=== PATIENT | male | born 1955 | race Caucasian/White ===

== ENCOUNTER → 2023-05-16 07:00 | Outpatient (BNV) | payer OTHER, SELFPAY | PROVIDERS: Admitting Provider Physician Assistant; Emergency Provider Emergency Medicine; PCP Pediatrics; Visit Provider Internal Medicine | DX: I63.9 Cerebral infarction, unspecified (principal) | CPT/HCPCS: 93010; 93306 ==

== ENCOUNTER 2023-05-16 10:04 | Inpatient (IN) | payer MEDICARE, OTHER, SELFPAY ==
--- NOTE | ~2023-05-16 | MR_ITS ---
MRI OF THE BRAIN WITHOUT IV CONTRAST INDICATION: Acute CVA. COMPARISON: Head CT and CTA head and neck performed earlier the same day. TECHNIQUE: Multiplanar multisequence MR imaging of the brain was obtained without IV contrast. FINDINGS: There is no hydrocephalus, extra-axial surface collection, or herniation. There is a small 0.7 cm acute infarct within the posterior right lopes radiata. There is no mass effect and there is no hemorrhagic transformation. The major flow voids at the skull base are preserved. There is no intracranial hemorrhage on the gradient recalled echo acquisition. The midline structures are normal. The cerebellar tonsils are normally positioned. The cerebellum and brainstem are normal. The craniocervical junction is normal. Osseous marrow signal intensity is homogenous. The visualized soft tissues are unremarkable. MR/MR head/brain wo con IMPRESSION: - There is a small 0.7 cm acute infarct within the posterior right lopes radiata. There is no mass effect and there is no hemorrhagic transformation. - No FLAIR imaging is available for interpretation at the time of this study. There is chronic microangiopathy.
--- NOTE | ~2023-05-16 | CT_ITS ---
EXAMINATION: CT ANGIOGRAM HEAD CT ANGIOGRAM NECK CLINICAL INFORMATION: Left-sided weakness. COMPARISON: CT head from 05/16/2023. TECHNIQUE: Initial noncontrast phone engineer imaging of the head and neck was performed. Comparison is made with noncontrast head CT from earlier today. Test bolus sequences followed by intravenous administration 70 mL of Omnipaque 350. Helical imaging was performed in the axial plane from the aortic arch to the skull vertex. Delayed postcontrast imaging of the head was also performed. The data was processed at the manufacturing engineering technologist's workstation for generation of MIP sequences. Angled MIPs and volume rendered reformatted images were also generated at an offline 3D workstation. Stenoses are assessed in accordance with NASCET criteria unless otherwise indicated. This CT examination was performed using dose optimization techniques as appropriate, variously including the following: *Automated exposure control. *Adjustment of mA and/or kV according to patient size (this includes techniques or standardized protocols for targeted exams where dose is matched to indication/reason for exam; i.e. extremities or head). *Use of iterative reconstruction technique. DLP: 1604 mGy-cm FINDINGS: CT Head: There is no evidence of acute intracranial hemorrhage or edematous territorial infarction. Uriarte-white matter differentiation is preserved. A few foci of hypoattenuation in the periventricular and deep white matter are consistent with mild microangiopathy. The ventricles are normal in morphology and size. No evidence for obstructive hydrocephalus. No abnormal mass effect or midline shift. No extra-axial fluid collections. No pathologic intra-axial enhancement or regional oligemia. No acute soft tissue or osseous abnormalities. Mild mucosal thickening of the paranasal sinuses. Mild leftward nasal septal deviation anteriorly. Moderate rightward nasal septal deviation posteriorly with spurring. The mastoid air cells and middle ear cavities are clear. Multifocal odontogenic enamel erosions. 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 The remaining cervical soft tissues are within normal limits. Straightening of the normal cervical lordosis. Moderate degenerative disc disease from C4-C7 with disc-osteophyte complex formation. There appears to be at least mild spinal canal stenoses from C4-C7. Facet and uncovertebral joint arthropathy leads to osseous encroachment on the neural foramina from C4-C7. CT Upper Chest: The visualized lung apices and upper mediastinum are within normal limits. Neck CTA: Aortic Arch: Normal contour and caliber with mild calcific atherosclerotic disease. Classic 3 vessel branching pattern of the aortic arch. Great Vessel Origins: No significant stenosis of the branch origins. Right Common Carotid Artery: No focal stenosis or occlusion. Cervical Right Internal Carotid Artery: Mild calcific atherosclerotic disease of the carotid bulb and proximal internal carotid artery without flow-limiting stenosis. Left Common Carotid Artery: No focal stenosis or occlusion. Cervical Left Internal Carotid Artery: Mild calcific atherosclerotic disease of the carotid bulb and proximal internal carotid artery without flow-limiting stenosis. Cervical Right Vertebral Artery: Co-dominant. Calcific atherosclerotic disease causes mild to moderate stenosis of the origin. No additional focal stenosis or occlusion. Cervical Left Vertebral Artery: Co-dominant. No focal stenosis or occlusion. Brain CTA: Intracranial Internal Carotid Arteries: Calcific atherosclerotic disease of the intracranial internal carotid arteries without occlusion or flow-limiting stenosis. Right Anterior Cerebral Artery: Normal A1 segment. Normal opacification of the distal ERMELINDA segments. Left Anterior Cerebral Artery: Normal A1 segment. Normal opacification of the distal ERMELINDA segments. Anterior Communicating Artery: Normal. Right Middle Cerebral Artery: Normal M1 segment of the MCA without focal stenosis or occlusion. Normal arborization of the distal segments. Left Middle Cerebral Artery: Normal M1 segment of the MCA without focal stenosis or occlusion. Normal arborization of the distal segments. Right Vertebral Artery: Normal V4 segment. Normal opacification of the proximal segments of the posterior inferior cerebellar artery. Left Vertebral Artery: Normal V4 segment. Normal opacification of the proximal segments of the posterior inferior cerebellar artery. Basilar Artery: Normal without focal stenosis or occlusion. Normal appearance of the proximal superior cerebellar arteries. Right Posterior Cerebral Artery: Normal P1 segment. Normal opacification of the distal BUSINESS SYSTEMS MANAGER segments. Left Posterior Cerebral Artery: Normal P1 segment. Normal opacification of the distal BUSINESS SYSTEMS MANAGER segments. Normal opacification of the superior sagittal, straight, transverse, and sigmoid sinuses. CT/CT angio head neck stroke IMPRESSION: 1. No evidence of acute intracranial hemorrhage or edematous territorial infarction. Mild underlying microangiopathy. 2. CTA of the head and neck without proximal occlusion. 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 No additional flow-limiting stenoses. 3. Moderate multilevel degenerative spondyloarthropathy of the cervical spine. This critical result was discussed with Dr. Jauregui at 10:54 on 05/16/2023 and it was ascertained that the content and urgency of the report was understood at the time of direct communication.
--- NOTE | ~2023-05-16 | CT_ITS ---
EXAMINATION: CT HEAD WITHOUT CONTRAST CLINICAL INFORMATION: Left-sided weakness COMPARISON: None available. TECHNIQUE: Contiguous axial imaging was performed from the skull base to vertex without intravenous administration of contrast. This CT examination was performed using dose optimization techniques as appropriate, variously including the following: *Automated exposure control *Adjustment of mA and/or kV according to patient size (this includes techniques or standardized protocols for targeted exams where dose is matched to indication/reason for exam; i.e. extremities or head) *Use of iterative reconstruction technique DLP: 719 mGy-cm FINDINGS: There is no evidence of acute intracranial hemorrhage or territorial infarction. No abnormal mass effect or midline shift is seen. Uriarte to white matter differentiation is well preserved. No extra-axial fluid collections are identified. The ventricles are normal in size. There is no abnormal attenuation within the brain parenchyma. The osseous structures and soft tissues are normal. The mastoid air cells and visualized portions of the paranasal sinuses are well aerated. Atherosclerotic calcifications. CT/CT head/brain wo IV con IMPRESSION: No acute intracranial pathology. This critical result was discussed with Lucina Jauregui by telephone on 05/16/2023 10:45 AM and it was ascertained that the content and urgency of the report was understood at the time of direct communication.
--- NOTE | 2023-05-16 07:00 | CA_ITS ---
Transthoracic Echocardiogram Patient (Last, First, Middle): Arsh Stokes, Gender: Male Date of : 1955 Age: 67 Procedure Date: 05/16/2023 Procedure Type: Transthoracic Echocardiogram Location: ER Height: 175.26 cm Weight: 87.09 kg BSA: 2.03 m2 Heart Rate: bpm BP: 148 / 83 mmHg Certified Surgical Assistant: MIGUEL Referring MD: Madelaine RANDALL Symptoms: acute cva Study Quality: Adequate ECG Rhythm: Sinus Conclusions: - The left ventricular systolic function is normal. The calculated ejection fraction is 64% by biplane method. - There is mildly increased left ventricular wall thickness. - No obvious valvular pathology seen on this study. - There is mild dilatation of the ascending aorta measuring 3.80 cm. Findings Left Ventricle Normal left ventricular cavity size. There is mildly increased left ventricular wall thickness. The left ventricular systolic function is normal. The calculated ejection fraction is 64% by biplane method. There is no evidence of regional wall motion abnormalities. Diastolic function is normal for age. Right Ventricle Normal right ventricular cavity size and systolic function. Atria Both atria are normal in size. Interatrial shunt cannot be excluded. Aortic Valve There is a normal trileaflet aortic valve. There is no aortic valve stenosis. There is no aortic valve regurgitation. Mitral Valve The mitral valve appears normal. There is no mitral valve regurgitation. There is no mitral valve stenosis. Pulmonic Valve The pulmonic valve is likely normal. Tricuspid Valve Normal tricuspid valve structure. There is trace tricuspid valve regurgitation. There is no evidence of pulmonary hypertension. Great Vessels There is mild dilatation of the ascending aorta measuring 3.80 cm. Venous The inferior vena cava is normal in size and collapses greater than 50% with inspiration. Pericardium/Pleural There is no evidence of pericardial effusion. Prior Study Comparison No prior study available for comparison. If clinically indicated, consider agitated saline contrast - bubble study. Recommendations, Care & Conclusions No obvious valvular pathology seen on this study. Measurements 2D Linear Measurements IVSd: 1.27 0.6-0.9/0.6-1.0 cm LVIDd: 4.09 3.9-5.3/4.2-5.9 cm LVIDd Index: 2.01 2.4-3.2/2.2-3.1 cm/m2 LVIDs: 2.42 2.0-3.6 cm LVPWd: 1.09 0.7-1.1 cm Ao Root: 3.30 2.1-3.5 cm LA Diam: 3.00 2.7-3.8/3.0-4.0 cm LAIDs Index: 1.48 1.5-2.3 cm/m2 LV Mass: 207.91 67-162/88-224 g LV Mass Index: 102.42 43-95/49-115 g/m2 LVOT Diam: 2.00 3.0+(-)1.3 cm 2D Systolic Function EF 4C: 69.10 >55% EF 2C: 57.00 >55% EF BiP: 64.40 >55% Mitral Valve MV Pk E: 0.84 MV PK A: 0.92 MV Decel Time: 169.00 E/A: 0.90 E'Lateral: 9.14 E'Medial: 8.81 E/E' Med: 9.50 E/E' Lat: 9.20 PHT: 50.00 MVA PHT: 4.40 Decel [place]: 4.96 Aortic Valve AoV Pk Chilo: 1.32 AoV Mn Chilo: 0.91 AoV VTI: 0.24 AoV Pk Grad: 7.00 Aov Mn Grad: 4.00 JACOBO Cont.VTI: 2.50 LVOT LVOT Pk Chilo: 0.98 LVOT Mn Chilo: 0.76 LVOT VTI: 0.19 LVOT Pk Grad: 4.00 LVOT Mn Grad: 3.00 LVOT Diam: 2.00 LVOT Area: 3.14 Diastolic Function MV Pk E: 0.84 MV Pk A: 0.92 E/A: 0.90 E'Medial: 8.81 E/E' Med: 9.50 E' Laterial: 9.14 E/E' Lat: 9.20 Right Ventricle TAPSE (mm): 22.00 TVS' Chilo: 13.00 Tricuspid Valve TR Pk Chilo: 1.71 TR Pk Grad: 12.00 RA Press: 3.00 RVSP: 15.00 Great Vessels Aorta Ao Root-2D: 3.30 2.0-3.7 cm Ao Asc: 3.80 2.1-3.4 cm Pulmonary Valve PV Pk Chilo: 0.94 Peak PV Grad: 4.00 Updated in Other Vendor System with Status of Final Jerry Castro MD electronically signed on 05/16/2023 4:27:15 PM with status of Final
--- NOTE | 2023-05-16 10:13 | ECG_ITS ---
Test Reason : STROKE SYMPTOMS Blood Pressure : / mmHG Vent. Rate : 093 BPM Atrial Rate : 093 BPM P-R Int : 186 ms QRS Dur : 092 ms QT Int : 344 ms P-R-T Axes : 064 -50 037 degrees QTc Int : 427 ms Normal sinus rhythm Left axis deviation Abnormal ECG No previous ECGs available Referred By: Lucina Jauregui Electronically Signed By:SIM GARG
[2023-05-16 10:16] VITALS: BP 162/82; BP 164/78; PULSE 101; PULSE 104; RESP 18; TEMP 36.7; O2SAT 96; BMI 28.4
--- NOTE | 2023-05-16 10:21 | ED_ITS ---
HPI - Neuro Symptoms/Deficit General Chief Complaint: Stroke Stated Complaint: L LEG WEAKNESS Time Seen by Provider: 05/16/23 10:08 Source: patient Mode of arrival: EMS Limitations: no limitations History of Present Illness HPI Narrative: 67 yo male with PMH of DM, HTN went to bed at 830pm and was okay. He woke up at 3am to use the bathroom and noted his left leg was weak and he had to hobble. He ignored the symptoms and went to work. He denies headaches, trauma, neck manipulation. He is R handed. His co-workers forced him to come when they noted he was dragging his leg and hobbing around. He has never had a stroke before. 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 Onset (ago): hour(s) (830pm yesterday ) Last Observed Normal: 20:30 Timing confirmed by: other (self) Location: left arm and left leg History of same: No Quality: weak Relieving factors: none Exacerbating factors: none Context: gradual onset On Anticoagulants: No Associated symptoms: denies other symptoms Treatments Prior to Arrival: Aspirin (650mg) Related Data Allergies Allergy/AdvReac Type Severity Reaction Status Date / Time No Known Allergies Allergy Verified 05/16/23 10:08 Review of Systems 2 Review of Systems: Constitutional : No Fever, No Chills, No Fatigue ENT/Mouth : No sore throat, No Rhinorrhea Eyes: No Eye Pain, No Swelling, No Redness Cardiovascular : No Chest Pain, No SOB, No Dyspnea on Exertion Respiratory : No Cough, No Sputum Gastrointestinal : No Nausea, No Vomiting, No Diarrhea, No abdominal Pain Genitourinary : No Dysuria, No Urinary Frequency, No Hematuria, Musculoskeletal : No joint pain, No Myalgias, No Joint Swelling Skin : No Skin Lesions, No rash Neuro : pos Weakness, No Numbness, No Dizziness, no Headache Psych : No Anxiety/Panic, No Depression All other systems reviewed and are negative [facility] Past Medical History Attestation statement: The following information was validated with the patient. Medical History HTN (hypertension) Diabetes Social History Social History (Updated 05/16/23 @ 10:33 by Lucina Jauregui DO) Patient Tobacco Use Status: Never used Tobacco Smoked in Last 30 Days: No Use of substances other than those prescribed or required for medical reasons: No Advance Directives: No Advance Directives Information Provided: No Physical Exam 2 Vital Signs: Vital Signs: Last Vital Signs Temp 98.1 F 05/16/23 10:16 Pulse 101 H 05/16/23 10:16 Resp 18 05/16/23 10:16 BP 162/82 H 05/16/23 10:16 Pulse Ox 96 05/16/23 10:16 O2 Del Method Room Air 05/16/23 10:16 BMI result Body Mass Index 28.4 Appearance: Alert. Oriented X3. No acute distress. Eyes: Pupils equal, round and reactive to light. ENT: Pharynx normal. Neck: Normal inspection. Neck supple. CVS: Normal heart rate and rhythm. Pulses normal. Respiratory: No respiratory distress. Breath sounds normal. Abdomen: Soft and nontender. Skin: Skin warm and dry. Normal skin color. Normal skin turgor. Extremities: No lower extremity edema. No calf ttp Neuro: Oriented X 3. L sided weakness L > arm no vision change and no facial droop normal speech. No sensory deficit. Medications Administered Discontinued Medications Generic Name Dose Route Start Last Admin Trade Name Freq PRN Reason Stop Dose Admin Iohexol 100 ml 05/16/23 10:35 05/16/23 10:36 Iohexol 350 Mg/Ml 100 Ml Infus..Btl IV 05/16/23 10:36 70 ml ONCE ONE Administration Medical Decision Making Medical Decision Making 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 suspect stroke denies neck injury or manipulation. 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 Lab Attestation statement: I reviewed the patient's lab results. 05/16/23 10:56 05/16/23 10:56 Labs: Lab Results 05/16/23 Range/Units 10:56 WBC 6.1 (4.8-10.8) X10*3/uL RBC 4.64 (4.60-5.80) X10*6/uL Hgb 14.5 (14.0-18.0) g/dl Hct 41.4 L (42.0-52.0) % MCV 89.2 (80.0-98.0) fL MCH 31.3 (27.0-33.0) pg MCHC 35.0 (31.0-36.0) g/dl RDW 12.2 (11.0-16.0) % Plt Count 183 (160-400) X10*3/uL MPV 8.2 L (9.4-12.4) fL Immature Gran % (Auto) 0.2 (0.0-0.4) % Neut % (Auto) 83.3 H (45-73) % Lymph % (Auto) 10.4 L (20-40) % [place] % (Auto) 5.1 (2-11) % Eos % (Auto) 0.5 (0-4) % Baso % (Auto) 0.5 (0-2) % Lymph # (Auto) 0.6 L (1.2-4.9) X10*3/uL [place] # (Auto) 0.3 (0.1-1.2) X10*3/uL Eos # (Auto) 0.0 (0.0-0.4) X10*3/uL Baso # (Auto) 0.0 (0.0-0.2) X10*3/uL Abs Immat Gran (auto) 0.01 (0.00-0.03) X10*3/uL Absolute Neuts (auto) 5.1 (2.0-8.3) x10*3/uL Absolute Nucleated RBC 0.000 (0.0-0.012) X10*3/uL Nucleated RBC % (auto) 0.0 (0.0-0.2) /100WBC PT 10.8 L (11.1-13.3) SEC INR 0.9 (0.9-1.1) Sodium 137 (135-145) mmol/L Potassium 4.3 (3.3-5.1) mmol/L Chloride 106 (96-108) mmol/L Carbon Dioxide 24 (22-29) mmol/L Anion Gap 11 L (12-20) BUN 17 H (9-16) mg/dL Creatinine 1.03 (0.5-1.4) mg/dL Estim Creat Clear Calc 77.1 Estimated GFR > 60 Random Glucose 140 H (60-115) mg/dL Estimat Average Glucose 169 mg/dL Hemoglobin A1c % 7.5 H (<6.0) % Calcium 8.6 (8.4-10.2) mg/dL Magnesium 1.7 (1.6-2.6) mg/dL Total Bilirubin 0.3 (0.0-1.0) mg/dL Direct Bilirubin 0.1 (0.0-0.5) mg/dL AST 15 (5-37) U/L ALT 24 (0-40) U/L Alkaline Phosphatase 64 (39-117) U/L Troponin I High Sens < 2.7 (<3.5-35.0) ng/L Total Protein 6.3 L (6.5-8.0) g/dL Albumin 4.0 (3.5-5.0) g/dL Triglycerides 92 (<150) mg/dL Cholesterol 174 (<200) mg/dL LDL Cholesterol, Calc 110 H (<100) mg/dL HDL Cholesterol 46 (>40) mg/dL Ethyl Alcohol < 10 mg/dL Independent Interpretation I performed an independent interpretation of an: EKG and CT Scan (no ICH) Interpretation: Rate: 93 Rhythm: NSR [place]: left Normal P waves. Normal SHAWNA. Normal QRS complex. ST T wave : normal no RONIT qTC: 427 prior studies: no acute ischemia The study has been interpreted contemporaneously by me. . Radiology Impression Discussion of test interpretation with radiology: I discussed test interpretation with the radiologist and I have reviewed the radiologist's reading. Radiologist Impression: 1048am negative non con CT scan no ICH 1053am CTA no LVO at this time Independent Historian Clinical information obtained from an independent historian. History obtained from or confirmed by: EMS NIH Stroke Scale Internal: Initial- Upon Arrival Level of Consciousness: Alert Level of Consciousness Questions: Answers both questions correctly Level of Consciousness Commands: Performs both tasks correctly Best Gaze: Normal Visual: No visual loss Facial Palsy: Normal Motor Arm (Right): No drift Motor Arm (Left): Drift Motor Leg (Right): No drift Motor Leg (Left): Drift Limb Ataxia: Absent Sensory: Normal Best Language: No aphasia Dysarthia: Normal Extinction and Inattention: No abnormality Score: 2 Critical Care Time Critical Care Time Critical Care Time: Yes Total Critical Care Time: 45 Attestation: stroke protocol, admission, repeat exams Discharge Plan Discharge Clinical Impression: Left-sided weakness Patient Disposition: Admitted As Inpatient
[2023-05-16] MEDS: iohexoL 350 MG/ML 100 ML INFUS..BTL IV (10:36)
[2023-05-16 11:03] LABS: MANUAL DIFF FLAG NO
[2023-05-16 11:08] LABS: Basophils Percent Auto 0.5 % (0-2); Eosinophils Percent Auto 0.5 % (0-4); Hematocrit 41.4 % (42.0-52.0); Hemoglobin 14.5 g/dl (14.0-18.0); Imm Gran Abs Auto 0.01 X10*3/uL (0.00-0.03); Imm Gran Pct Auto 0.2 % (0.0-0.4); Lymphocytes Absolute Auto 0.6 X10*3/uL (1.2-4.9); Lymphocytes Percent Auto 10.4 % (20-40); Mean Corpuscular Hemoglobin 31.3 pg (27.0-33.0); Mean Corpuscular Volume 89.2 fL (80.0-98.0); Mean Platelet Volume 8.2 fL (9.4-12.4); Monocytes Absolute Auto 0.3 X10*3/uL (0.1-1.2); Monocytes Percent Auto 5.1 % (2-11); Neutrophils Absolute Auto 5.1 x10*3/uL (2.0-8.3); Neutrophils Percent Auto 83.3 % (45-73); Platelet Count 183 X10*3/uL (160-400); Red Blood Count 4.64 X10*6/uL (4.60-5.80); Red Cell Distribution Width 12.2 % (11.0-16.0); White Blood Count 6.1 X10*3/uL (4.8-10.8)
[2023-05-16 11:09] LABS: INTERNATIONAL NORM RATIO 0.9 (0.9-1.1); Prothrombin Time 10.8 SEC (11.1-13.3)
--- NOTE | 2023-05-16 11:12 | MHC.STROKE ---
Notified of stroke alert patient in the ED. Upon arrival to ED, patient was in CT scan. Once CT finished, patient brought to room 5. Pt presented to ED after coworkers convinced him to come to the ED. Pt reports going to bed at 2030 yesterday. He reports that he felt well. States that he woke up around 3am (goes into work for 5) and states that he felt like his left foot was asleep. He reports that his left leg was dragging a little. This was new for him as he previously had no mobility issues. Pt denies speech/visual disturbance. Denies confusion at any point. Pt is laying on ED stretcher. Pt is awake, alert and oriented x 3. Skin pink warm and dry. Resp even, easy, unlabored. Denies N/V. No complaints of pain. Hand grasp appears weaker on the left (despite patient trying to overcompensate with that hand). Slight drift noted to left arm. Speech is clear, tongue midline. No facial droop appreciated. PERRLA. Slight weakness noted to left leg when extending feet. July heel to wilkins test bilaterally. Pt passed swallow eval. Stroke/TIA education provided to patient. Patient seems to be naive to the situation that happened and states I hope I'm not here all day . Explained to patient that due to his symptoms it's important for us to investigate what happened. Kinjal DUNLAP aware of assessment. Please reach out with any questions or concerns.
--- NOTE | 2023-05-16 11:14 | PC.NURSE ---
updated on current condition, stating unable to come visit d/t having a recent stroke herself
[2023-05-16 11:17] LABS: Estimated Average Glucose 169 mg/dL; Hemoglobin A1c % 7.5 % (<6.0)
[2023-05-16 11:23] LABS: Alanine Aminotransferase 24 U/L (0-40); Alkaline Phosphatase 64 U/L (39-117); Anion Gap 11 (12-20); Aspartate Amino Transferase 15 U/L (5-37); Bilirubin Direct 0.1 mg/dL (0.0-0.5); Bilirubin Total 0.3 mg/dL (0.0-1.0); Blood Urea Nitrogen 17 mg/dL (9-16); Calcium 8.6 mg/dL (8.4-10.2); Carbon Dioxide 24 mmol/L (22-29); Chloride 106 mmol/L (96-108); Cholesterol 174 mg/dL (<200); Creatinine Clr Calc Pharmacy 77.1; Estimated Glomerular Filt Rate > 60; Ethanol < 10 mg/dL; Glucose Random 140 mg/dL (60-115); HDL Cholesterol 46 mg/dL (>40); LDL Cholesterol Calculated 110 mg/dL (<100); Magnesium 1.7 mg/dL (1.6-2.6); Potassium 4.3 mmol/L (3.3-5.1); Sodium 137 mmol/L (135-145); Total Protein 6.3 g/dL (6.5-8.0); Triglycerides 92 mg/dL (<150)
[2023-05-16 11:33] LABS: Troponin-I High Sensitivity < 2.7 ng/L (<3.5-35.0)
--- NOTE | 2023-05-16 12:30 | PHA.MEDREC ---
Pharmacy Consult ? Medication Reconciliation Pharmacy has completed the medication reconciliation.
--- NOTE | 2023-05-16 12:39 | P.HPHOSP_ITS ---
History of Present Illness Date of Service: 05/16/23 Attending physician on admission: Lukas Bledsoe Chief Complaint: lle weakness 67-year-old male with history of hypertension, controlled [id number]-[id number] type 2 diabetes last A1c 7.5% (goal less than 8% given H), hyperlipidemia presents to the ED earlier today for evaluation of left lower extremity weakness that he noted upon waking at 03:00 this morning. Last known well time was around 20:30 last night when he went to bed. Denies any other focal weakness, paresthesias, facial droop, slurred speech, visual changes, headache, lightheadedness, shortness of breath, palpitations, chest pain. No history of prior symptoms or known CVA history. He reports he went to work with symptoms present and was advised to come to the ED by his co-worker who noted patient limping. On arrival, patient hypertensive to 162/82, vital signs otherwise stable. Hematology studies unremarkable. Renal function and electrolyte levels normal. Glucose 140, hemoglobin A1c 7.5%. Troponin below detectable limits. Total cholesterol 174, LDL 110. Ethyl alcohol level undetectable. CT head negative for any acute intracranial pathology. CTA head/neck negative for any acute intracranial abnormality but shows mild underlying microangiopathy. There is no proximal occlusion and only fugj-hy-ymofubma atherosclerotic stenosis of the origin of the right vertebral artery but no flow-limiting stenosis. Patient had taken 650 mg of aspirin prior to arrival. He did pass bedside swallow evaluation. He denies any alcohol use, history of smoking, or illicit drug use. He will be admitted for further management of acute CVA. Review of Systems 2 Review of Systems: General: No fevers, malaise, unintentional weight loss HEENT: No blurred vision, diplopia. No sore throat, nasal congestion, rhinorrhea, sinus pain, ear pain Cardiovascular: No chest pain, palpitations, or leg edema Respiratory: No shortness of breath, wheezing, cough GI: No abdominal pain, nausea, vomiting, diarrhea, constipation, melena, hematochezia : No dysuria, hematuria, increased urinary frequency, decreased urinary output MSK: No myalgia, back pain Neuro: No headaches, paresthesias. +LLE weakness Skin: No rashes or lesions [facility] Medical History HLD (hyperlipidemia) HTN (hypertension) Diabetes Social History Patient Tobacco Use Status: Never used Tobacco Smoked in Last 30 Days: No Use of substances other than those prescribed or required for medical reasons: No Advance Directives: No Advance Directives Information Provided: No Meds Allergies Allergy/AdvReac Type Severity Reaction Status Date / Time No Known Allergies Allergy Verified 05/16/23 10:08 Active Medications: Current Medications Acetaminophen (Acetaminophen 325 Mg Tablet) 650 mg PO Q6H PRN PRN Reason: Pain, Mild (Pain Scale 1-3) Enoxaparin Sodium (Enoxaparin Sodium 40 Mg/0.4 Ml Syringe) 40 mg SUBCUT Q24H TRISHA Ondansetron HCl (Ondansetron Hcl 4 Mg/2 Ml Vial) 4 mg IVPUSH Q8H PRN PRN Reason: Nausea and Vomiting Sodium Chloride (0.9 % Sodium Chloride Flush 3 Ml Syringe) 3 ml IVFLUSH QSHIFT [facility] Home Medications Medication Instructions Recorded Confirmed Last Taken Type allopurinol 100 mg tablet 200 mg PO DAILY 05/16/23 05/16/23 Unknown History empagliflozin 25 mg tablet 25 mg PO DAILY 05/16/23 05/16/23 Unknown History (Jardiance) losartan 50 mg tablet 50 mg PO DAILY 05/16/23 05/16/23 Unknown History metformin 500 mg tablet,extended 2,000 mg PO QAM 05/16/23 05/16/23 Unknown History release 24 hr simvastatin 40 mg tablet 40 mg PO QPM 05/16/23 05/16/23 Unknown History Physical Exam 2 Vital Signs and Narrative: Vital Signs: Last Vital Signs Temp 98.1 F 05/16/23 10:16 Pulse 101 H 05/16/23 10:16 Resp 18 05/16/23 10:16 BP 162/82 H 05/16/23 10:16 Pulse Ox 96 05/16/23 10:16 O2 Del Method Room Air 05/16/23 10:16 BMI result Body Mass Index 28.4 Constitutional - Awake and Alert, No apparent distress Eyes - PERRLA, EOMI Cardiovascular - S1S2, RRR, No edema Respiratory - Normal lung expansion, Normal respiratory effort, No respiratory distress, CTA bilaterally Gastrointestinal - NT / ND; +BS; No rebound or guarding Extremities - no calf tenderness bilaterally, no swelling Skin - Warm/Dry Neurological - Alert & oriented x3, normal speech, CN II-XII in tact, 5/5 strength RUE and RLE, 4/5 strength LUE and LLE with +Left sided pronator drift. 2+ patellar reflexes Psychological - Appropriate affect Results Labs 05/16/23 10:56 05/16/23 10:56 Labs: Laboratory Results - last 24 hr 05/16/23 10:56 MCV 89.2 MCH 31.3 MCHC 35.0 RDW 12.2 Plt Count 183 MPV 8.2 L Immature Gran % (Auto) 0.2 Neut % (Auto) 83.3 H Lymph % (Auto) 10.4 L [place] % (Auto) 5.1 Eos % (Auto) 0.5 Baso % (Auto) 0.5 Lymph # (Auto) 0.6 L [place] # (Auto) 0.3 Eos # (Auto) 0.0 Baso # (Auto) 0.0 Abs Immat Gran (auto) 0.01 Absolute Neuts (auto) 5.1 Absolute Nucleated RBC 0.000 Nucleated RBC % (auto) 0.0 PT 10.8 L INR 0.9 Anion Gap 11 L Estim Creat Clear Calc 77.1 Estimated GFR > 60 Random Glucose 140 H Estimat Average Glucose 169 Hemoglobin A1c % 7.5 H Calcium 8.6 Magnesium 1.7 Total Bilirubin 0.3 Direct Bilirubin 0.1 AST 15 ALT 24 Alkaline Phosphatase 64 Troponin I High Sens < 2.7 Total Protein 6.3 L Albumin 4.0 Triglycerides 92 Cholesterol 174 LDL Cholesterol, Calc 110 H HDL Cholesterol 46 Ethyl Alcohol < 10 Imaging Radiologist's Impressions: Impressions Head CT 05/16/23 10:33 IMPRESSION: No acute intracranial pathology. This critical result was discussed with Lucina Jauregui by telephone on 05/16/2023 10:45 AM and it was ascertained that the content and urgency of the report was understood at the time of direct communication. Head/Neck CTA 05/16/23 10:37 IMPRESSION: 1. No evidence of acute intracranial hemorrhage or edematous territorial infarction. Mild underlying microangiopathy. 2. CTA of the head and neck without proximal occlusion. 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 No additional flow-limiting stenoses. 3. Moderate multilevel degenerative spondyloarthropathy of the cervical spine. This critical result was discussed with Dr. Jauregui at 10:54 on 05/16/2023 and it was ascertained that the content and urgency of the report was understood at the time of direct communication. Assessment and Plan (1) Acute CVA (cerebrovascular accident): Status: Acute Plan 67-year-old male with history of hypertension, controlled dig-haoaqed-vlxvbcllm type 2 diabetes last A1c 7.5% (goal less than 8% given age), hyperlipidemia admitted for acute CVA #ACute CVA -head CT negative for acute intracranial pathology. CTA head/neck shows [id number]-[id number] stenosis at the origin of the right vertebral artery but no flow-limiting stenosis or LVO -MRI brain ordered -patient took 650 mg aspirin prior to arrival. Continue ASA 81 mg daily -atorvastatin 40 mg daily. LDL 110, goal less than 70 -echo ordered -passed bedside swallow evaluation. Continue neuro checks q.4h. Stroke education -neurology consult -cardiac diet -PT/OT evaluation -monitor on telemetry # ihu-[id number]-[id number] type 2 diabetes without hyperglycemia -controlled with hemoglobin A1c 7.5% (goal less than 8% given age) -POC glucose, diabetic diet -Humalog on sliding scale -continue Jardiance. Hold metformin # hypertension -blood pressure reasonably controlled -hold antihypertensives at this time to allow for permissive hypertension # HLD -LDL not at goal, atorvastatin 40 mg daily -LDL goal less than 70 DVT prophylaxis-Lovenox Full code Patient requires inpatient stay at least 2 midnights for management of acute CVA crowding advanced imaging with MRI, close cardiac monitoring, expert consultation and close monitoring for progression of symptoms Quality Stroke Does the patient have a stroke diagnosis?: Yes Reason for No Anti-thrombotic by Day Two: Drug treatment not indicated VTE Prior VTE?: No VTE Risk Level:: Medical - moderate - high VTE Device Contraindication: Treatment Not Indicated VTE Drug Contraindication: N/A - Med Ordered
[2023-05-16 12:54] VITALS: BP 148/83; PULSE 84; RESP 12; TEMP 37; O2SAT 98
[2023-05-16] MEDS: Enoxaparin Sodium 40 MG/0.4 ML SYRINGE SUBCUT (13:09)
[2023-05-16] MEDS: Atorvastatin Calcium 40 MG TABLET PO (13:09)
[2023-05-16 13:10] VITALS: BP 148/83; PULSE 86; RESP 18; O2SAT 97
--- NOTE | 2023-05-16 14:54 | PM.NEUROCN ---
History of Present Illness Data of Consult Service Date: 05/16/23 Primary Care Provider: Casimiro Vega MD HPI Reason for consult: Stroke 67 years old man with underlying history of hypertension and diabetes was in usual state of health woke up this morning and noted that his left leg was numb and weak. In emergency room deficit was minimal to none and he was evaluated for stroke. There was no associated dizziness, visual symptom, speech or language difficulty or any hand symptoms. There was no complaint of any neck or back pain or leg pain. Review of Systems Review of Systems: No cardiac symptom or recent cold or flu-like illness PMFSH Past Medical History Medical History HLD (hyperlipidemia) HTN (hypertension) Diabetes Social History Social History Patient Tobacco Use Status: Never used Tobacco Smoked in Last 30 Days: No Use of substances other than those prescribed or required for medical reasons: No Advance Directives: No Advance Directives Information Provided: No Meds Allergies Allergy/AdvReac Type Severity Reaction Status Date / Time No Known Allergies Allergy Verified 05/16/23 10:08 Active Medications: Current Medications Acetaminophen (Acetaminophen 325 Mg Tablet) 650 mg PO Q6H PRN PRN Reason: Pain, Mild (Pain Scale 1-3) Allopurinol (Allopurinol 100 Mg Tablet) 200 mg PO DAILY [facility] Aspirin (Aspirin Enteric Coated 81 Mg Tablet.Dr) 81 mg PO DAILY [facility] Atorvastatin Calcium (Atorvastatin Calcium 40 Mg Tablet) 40 mg PO DAILY [facility] Last Admin: 05/16/23 13:09 Dose: 40 mg Dextrose (Dextrose 50 % 25 Gm/50 Ml Syringe) 25 gm IVPUSH Q15M PRN; Protocol PRN Reason: per Hypoglycemia Standing Ord. Empagliflozin (Empagliflozin 25 Mg Tablet) 25 mg PO DAILY [facility] Enoxaparin Sodium (Enoxaparin Sodium 40 Mg/0.4 Ml Syringe) 40 mg SUBCUT Q24H [facility] Last Admin: 05/16/23 13:09 Dose: 40 mg Glucose (Glucose Gel 15 Gm Gel..Gram.) 15 gm PO Q15M PRN; Protocol PRN Reason: per Hypoglycemia Standing Ord. Insulin Human Lispro (Insulin Lispro 100 Unit/Ml 3 Ml Vial) 0 unit SUBCUT QIDACHS [facility]; Protocol Ondansetron HCl (Ondansetron Hcl 4 Mg/2 Ml Vial) 4 mg IVPUSH Q8H PRN PRN Reason: Nausea and Vomiting Senna (Sennosides 8.6 Mg Tablet) 17.2 mg PO BEDTIME PRN PRN Reason: Constipation Sodium Chloride (0.9 % Sodium Chloride Flush 3 Ml Syringe) 3 ml IVFLUSH QSHIFT [facility] Home Medications Medication Instructions Recorded Confirmed Last Taken Type allopurinol 100 mg tablet 200 mg PO DAILY 05/16/23 05/16/23 Unknown History empagliflozin 25 mg tablet 25 mg PO DAILY 05/16/23 05/16/23 Unknown History (Jardiance) losartan 50 mg tablet 50 mg PO DAILY 05/16/23 05/16/23 Unknown History metformin 500 mg tablet,extended 2,000 mg PO QAM 05/16/23 05/16/23 Unknown History release 24 hr simvastatin 40 mg tablet 40 mg PO QPM 05/16/23 05/16/23 Unknown History Physical Exam Vital Signs: Vital Signs: Last Vital Signs Temp 98.6 F 05/16/23 12:54 Pulse 86 05/16/23 13:10 Resp 18 05/16/23 13:10 BP 148/83 H 05/16/23 13:10 Pulse Ox 97 05/16/23 13:10 O2 Del Method Room Air 05/16/23 13:10 BMI result Body Mass Index 28.4 Neuro: Other: He was alert and awake with normal spontaneity of speech fluency comprehension and affect. Face was symmetrical. Visual wilson are full. There was mild left gdwbei-qa-kapm ataxia. Otherwise there was no obvious focal weakness and plantars were flexor. Deep tendon reflexes were trace. Speech was normal. Results Labs 05/16/23 10:56 05/16/23 10:56 Labs: Short CBC 05/16/23 Range/Units 10:56 WBC 6.1 (4.8-10.8) X10*3/uL Hgb 14.5 (14.0-18.0) g/dl Hct 41.4 L (42.0-52.0) % Plt Count 183 (160-400) X10*3/uL BMP 05/16/23 10:56 Sodium 137 Potassium 4.3 Chloride 106 Carbon Dioxide 24 BUN 17 H Creatinine 1.03 Calcium 8.6 Liver Function 05/16/23 Range/Units 10:56 Total Bilirubin 0.3 (0.0-1.0) mg/dL Direct Bilirubin 0.1 (0.0-0.5) mg/dL AST 15 (5-37) U/L ALT 24 (0-40) U/L Alkaline Phosphatase 64 (39-117) U/L Albumin 4.0 (3.5-5.0) g/dL Head CT revealed mild chronic microvascular disease and CTA did not reveal any obvious large vessel disease. Assessment and Plan (1) Acute CVA (cerebrovascular accident): Status: Acute 67 years old man who probably had a microvascular atherothrombotic small ischemic infarction and right subcortical areas related to hypertension and diabetes. An MRI of brain without contrast is recommended for evaluation. Otherwise I recommend anti-platelet therapy with statin blood pressure control. Sugar control should be better. PT OT consultation is also recommended for his leg strength. Procedures Date of Service Date of Service: 05/16/23
--- NOTE | 2023-05-16 15:09 | PC.NURSE ---
Alert and oriented, ate well for lunch with no difficulty swallowing. VSS denies pain or discomfort
[2023-05-16] MEDS: 0.9 % Sodium Chloride Flush 3 ML SYRINGE IVFLUSH (15:27)
[2023-05-16 18:24] LABS: Glucose, Whole Blood 107 mg/dL (60-115)
[2023-05-16 19:07] VITALS: BP 135/71; PULSE 80; RESP 14; TEMP 36.9; O2SAT 97
[2023-05-16] MEDS: Insulin Lispro 100 UNIT/ML 3 ML VIAL SUBCUT (21:51)
--- NOTE | 2023-05-16 21:57 | PC.NURSE ---
Patient is alert and oriented x4, VSS. GSC 15. Patient denies any pain. Patient ambulates independently with a steady gait. Printed educational materials on Stroke Education provided to patient. POC 153, patient medicated patient with 2 units of Lispro insulin per sliding scale. Patient currently resting in stretcher bed, watching TV, call aldrich in patient's reach.
[2023-05-16 22:08] LABS: Glucose, Whole Blood 153 mg/dL (60-115)
[2023-05-16 22:24] VITALS: BP 132/71; PULSE 67; RESP 14; TEMP 36.9; O2SAT 97
[2023-05-17] MEDS: 0.9 % Sodium Chloride Flush 3 ML SYRINGE IVFLUSH ×2 (01:31→08:27)
[2023-05-17 01:36] VITALS: BP 159/80; PULSE 80; RESP 18; TEMP 36.4; O2SAT 97
[2023-05-17 04:00] VITALS: BP 146/86; PULSE 76; RESP 18; TEMP 36.3; O2SAT 93
[2023-05-17 06:09] LABS: MANUAL DIFF FLAG NO
[2023-05-17 06:20] LABS: Basophils Percent Auto 0.4 % (0-2); Eosinophils Absolute Auto 0.1 X10*3/uL (0.0-0.4); Eosinophils Percent Auto 1.6 % (0-4); Hematocrit 42.6 % (42.0-52.0); Hemoglobin 14.7 g/dl (14.0-18.0); Imm Gran Abs Auto 0.02 X10*3/uL (0.00-0.03); Imm Gran Pct Auto 0.4 % (0.0-0.4); Lymphocytes Absolute Auto 1.1 X10*3/uL (1.2-4.9); Lymphocytes Percent Auto 19.8 % (20-40); Mean Corpuscular HGB Conc 34.5 g/dl (31.0-36.0); Mean Corpuscular Hemoglobin 30.8 pg (27.0-33.0); Mean Corpuscular Volume 89.3 fL (80.0-98.0); Mean Platelet Volume 8.4 fL (9.4-12.4); Monocytes Absolute Auto 0.5 X10*3/uL (0.1-1.2); Monocytes Percent Auto 8.6 % (2-11); Neutrophils Absolute Auto 3.9 x10*3/uL (2.0-8.3); Neutrophils Percent Auto 69.2 % (45-73); Platelet Count 195 X10*3/uL (160-400); Red Blood Count 4.77 X10*6/uL (4.60-5.80); Red Cell Distribution Width 12.2 % (11.0-16.0); White Blood Count 5.6 X10*3/uL (4.8-10.8)
[2023-05-17 06:29] LABS: Anion Gap 11 (12-20); Blood Urea Nitrogen 16 mg/dL (9-16); Calcium 9.1 mg/dL (8.4-10.2); Carbon Dioxide 27 mmol/L (22-29); Chloride 107 mmol/L (96-108); Creatinine Clr Calc Pharmacy 81.9; Estimated Glomerular Filt Rate > 60; Glucose Random 160 mg/dL (60-115); Potassium 4.4 mmol/L (3.3-5.1); Sodium 141 mmol/L (135-145)
[2023-05-17] MEDS: Empagliflozin 25 MG TABLET PO (08:27)
[2023-05-17] MEDS: allopurinoL 100 MG TABLET 200 MG PO (08:27)
[2023-05-17] MEDS: Clopidogrel Bisulfate 75 MG TABLET PO (08:27)
[2023-05-17] MEDS: Insulin Lispro 100 UNIT/ML 3 ML VIAL SUBCUT (08:27)
[2023-05-17] MEDS: Atorvastatin Calcium 40 MG TABLET PO (08:27)
[2023-05-17] MEDS: Aspirin Enteric Coated 81 MG TABLET.DR PO (08:27)
--- NOTE | 2023-05-17 09:20 | MHC.CM.PN ---
Pt is independent, does not use home health services or medical equipment. No HCP, declined to complete one, confirmed his PCP is Casimiro Vega. He is able to find transport upon DC. CM to follow and assist as needed with DC plan.
--- NOTE | 2023-05-17 12:05 | P.DS_ITS ---
DS: Providers Provider Date of Service: 05/17/23 Date of admission: 05/16/23 12:35 Date of discharge: 05/17/23 Primary care physician: Casimiro Vega MD Consults: 05/16/23 12:37 Consult to Neurology Routine Consulting Provider: [facility] Reason for consultation: acute cva Attending physician on discharge: Axel Santos Discharging clinician: Axel Santos DS: Diagnosis Discharge Diagnosis (1) Acute CVA (cerebrovascular accident): Status: Acute DS: Summary Hospital Course Hospital Course: 67-year-old male with history of hypertension, controlled vmf-yjgnger-[id number] type 2 diabetes last A1c 7.5% (goal less than 8% given H), hyperlipidemia presents to the ED earlier today for evaluation of left lower extremity weakness that he noted upon waking at 03:00 this morning. Last known well time was around 20:30 last night when he went to bed. Denies any other focal weakness, paresthesias, facial droop, slurred speech, visual changes, headache, lightheadedness, shortness of breath, palpitations, chest pain. No history of prior symptoms or known CVA history. He reports he went to work with symptoms present and was advised to come to the ED by his co-worker who noted patient limping. On arrival, patient hypertensive to 162/82, vital signs otherwise stable. Hematology studies unremarkable. Renal function and electrolyte levels normal. Glucose 140, hemoglobin A1c 7.5%. Troponin below detectable limits. Total cholesterol 174, LDL 110. Ethyl alcohol level undetectable. CT head ne gative for any acute intracranial pathology. CTA head/neck negative for any acute intracranial abnormality but shows mild underlying microangiopathy. There is no proximal occlusion and only gtba-ro-enfjdjpb atherosclerotic stenosis of the origin of the right vertebral artery but no flow-limiting stenosis. Patient had taken 650 mg of aspirin prior to arrival. He did pass bedside swallow evaluation. He denies any alcohol use, history of smoking, or illicit drug use. He will be admitted for further management of acute CVA. Hospital course: Patient came with left lower extremity weakness was admitted for possible CVA- started on aspirin, statin, patient had CTA head and neck done showed -umty-qe-bwigbysq stenosis at the origin of the right vertebral artery but no flow-limiting stenosis and also has mri which revealed - small 0.7 cm acute infarct within the posterior right lopes radiata . Patient seen by neurology-recomended dual antiplatlet therapy( asa,plavix ),statin, blood pressure and dm control. continue home blood pressure and diabetes medications. plan: Continue aspirin 81 mg daily, Plavix 75 mg daily, atorvastatin 40 mg daily, simvastatin stopped since started on atorvastatin. blood pressure flactuating- continue home meds ,if need may adjust losartan outpatient if needed for blood pressure. dm- fs seems acceptable ,Hba1c is 7.5. Monitor fingersticks at home and further management out patiently . patient will be going home with PT. Follow-up with PCP outpatient Above management discussed with the patient detail length he understand in agreement with the above plan, time spent 50 minute. Time Attestation Total time managing care of this patient today: 50 mintues. Discharge Coordination Time (in mins): 50 Quality: Safe Use of Opioids Does Pt have an Active Cancer Diagnosis on the Problem List?: No Quality: Stroke Does the patient have a stroke diagnosis?: Yes Reason for No Anti-thrombotic at DC: N/A - Med Ordered Reason for No Anticoagulant at DC: N/A - Med Ordered Reason Not Initiating IV-Tpa: Not indicated (out of window period) Reason for No Anti-thrombotic by Day Two: N/A - Med Ordered Reason for No Statin at DC: N/A - Med Ordered Physical Exam Vital Signs: Vital Signs: Last Vital Signs Temp 97.3 F 05/17/23 04:00 Pulse 76 05/17/23 04:00 Resp 18 05/17/23 04:00 BP 146/86 H 05/17/23 04:00 Pulse Ox 93 05/17/23 04:00 O2 Del Method Room Air 05/17/23 01:36 BMI result Body Mass Index 28.4 Appearance: Alert.? Oriented X3.?. cvs: rrr, [id number] , no murmur res: clear to auscultation ,no rhonchii or wheezing abd: no rebound or guarding ,nt, bs present. ext pulses present , no cyanosis . neuro: axo3 , left lower ext weakness improving. DS: Data Data Completed and Pending Labs on day of discharge: Laboratory Results - last 24 hr 05/16/23 05/16/23 05/17/23 18:19 21:47 05:29 WBC 5.6 RBC 4.77 Hgb 14.7 Hct 42.6 MCV 89.3 MCH 30.8 MCHC 34.5 RDW 12.2 Plt Count 195 MPV 8.4 L Immature Gran % (Auto) 0.4 Neut % (Auto) 69.2 Lymph % (Auto) 19.8 L Lander % (Auto) 8.6 Eos % (Auto) 1.6 Baso % (Auto) 0.4 Lymph # (Auto) 1.1 L Lander # (Auto) 0.5 Eos # (Auto) 0.1 Baso # (Auto) 0.0 Abs Immat Gran (auto) 0.02 Absolute Neuts (auto) 3.9 Absolute Nucleated RBC 0.000 Nucleated RBC % (auto) 0.0 Sodium 141 Potassium 4.4 Chloride 107 Carbon Dioxide 27 Anion Gap 11 L BUN 16 Creatinine 0.97 Estim Creat Clear Calc 81.9 Estimated GFR > 60 POC Glucose 107 153 H Random Glucose 160 H Calcium 9.1 Imaging Chest x-ray: Radiologist's impression: ITS Impressions Head CT 05/16/23 10:33 IMPRESSION: No acute intracranial pathology. This critical result was discussed with Lucina Jauregui by telephone on 05/16/2023 10:45 AM and it was ascertained that the content and urgency of the report was understood at the time of direct communication. Head/Neck CTA 05/16/23 10:37 IMPRESSION: 1. No evidence of acute intracranial hemorrhage or edematous territorial infarction. Mild underlying microangiopathy. 2. CTA of the head and neck without proximal occlusion. 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 No additional flow-limiting stenoses. 3. Moderate multilevel degenerative spondyloarthropathy of the cervical spine. This critical result was discussed with Dr. Jauregui at 10:54 on 05/16/2023 and it was ascertained that the content and urgency of the report was understood at the time of direct communication. Brain MRI 05/16/23 17:01 IMPRESSION: - There is a small 0.7 cm acute infarct within the posterior right lopes radiata. There is no mass effect and there is no hemorrhagic transformation. - No FLAIR imaging is available for interpretation at the time of this study. There is chronic microangiopathy. Discharge Plan Discharge Anticipated Discharge Date/Time: 05/17/23 11:47 Patient Disposition: Home, Self-Care Discharge Diagnosis: cva Referrals: Casimiro Vega MD [Primary Care Provider] - 1 Week Discharge Medications: New atorvastatin 40 mg Tablet 40 mg PO DAILY Qty: 30 0RF aspirin 81 mg Tablet,Delayed Release (Dr/Ec) 81 mg PO DAILY Qty: 30 0RF clopidogrel [Plavix] 75 mg tablet 75 mg PO DAILY Qty: 30 0RF Continued losartan 50 mg tablet 50 mg PO DAILY allopurinol 100 mg tablet 200 mg PO DAILY metformin 500 mg tablet extended release 24 hr 2,000 mg PO QAM Jardiance 25 mg tablet 25 mg PO DAILY Discontinued simvastatin 40 mg tablet 40 mg PO QPM Discharge Orders: Discharge Order (Routine); Ordered 05/17/23 Ordered By: Axel Santos Diet: Advance to usual diet Activity on Discharge: As tolerated Stand Alone Forms: Patient Portal Discharge page Care Plan Goals: Patient came with left lower extremity weakness was admitted for possible CVA- started on aspirin, statin, patient had CTA head and neck done showed -fdeb-bz-frqxckhi stenosis at the origin of the right vertebral artery but no flow-limiting stenosis and also has mri which revealed - small 0.7 cm acute infarct within the posterior right lopes radiata . Patient seen by neurology-recomended dual antiplatlet therapy( asa,plavix ),statin, blood pressure and dm control. continue home blood pressure and diabetes medications. Health Concerns: as above. Plan of Treatment: blood pressure flactuating- continue home meds ,if need may adjust losartan outpatient if needed for blood pressure. dm- fs seems acceptable ,Hba1c is 7.5. Monitor fingersticks at home and further management out patiently . follow up with outpatient PT with pcp. Follow-up with PCP outpatient Assessment: As above.
--- NOTE | 2023-05-17 12:10 | MHC.CM.PN ---
Addendum entered by Lizzie Gauthier 05/17/23 13:36: PT added updated rec for home PT, referrals out to [facility]'s who take pt.'s insurance ([facility]). Original Note: Pt has been medically cleared for DC, he will go home via private transport.
--- NOTE | 2023-05-17 13:18 | W.MHC.F2F ---
Service Date Service Date: 05/17/23 Encounter Date of encounter: 05/17/23 Encounter: cva Reasons for Services Signs and symptoms assessed: New weakness or numbness or any new symptoms MD Overseeing Care: Casimiro Vega Homebound: Leaving the home is medically contraindicated at this time without the asist of a device and/or another person due th the listed conditions above and below. Reason homebound: weakness related to hospital stay Homebound supporting statement: Patient is admitted for new CVA, generalized weak post hospitalization-need help with home PT. Certification: Based on the above findings, I certify that this patient is confined to the home and needs intermittent senior living care, physical therapy and/or speech therapy, or continues to need occupational therapy. The patient is under my care, and I have initiated the establishment of the plan of care. The patient will be followed by a physician who will periodically review the plan of care. Time Spent With Patient Time: Total time managing care of this patient today ____ minutes.
== END 2023-05-17 13:45 | disposition home or self-care (01) | DRG 66 ==
LOC: HO.ED 11:20 → HO.EDOVER 12:41 → HO.IMC 05-17 00:29
PROVIDERS: Admitting Provider Physician Assistant; Emergency Provider Emergency Medicine; PCP Pediatrics; Visit Provider Internal Medicine
DX: I63.9 Cerebral infarction, unspecified (principal); E78.5 Hyperlipidemia, unspecified; G83.14 Monoplegia of lower limb affecting left nondominant side; I10 Essential (primary) hypertension; R29.702 NIHSS score 2; Z79.84 Long term (current) use of oral hypoglycemic drugs; Z79.899 Other long term (current) drug therapy
CPT/HCPCS: 36415; 70450; 70496; 70498; 70551; 80048; 80061; 80076; 80307; 82947; 83036; 83735; 84484; 85025; 85610; 93005; 93306; 97116; 97162; 97166; 99285; J1650; Q9957; Q9967

== ENCOUNTER → 2023-05-16 12:35 | Outpatient (BNV) | payer OTHER, SELFPAY | PROVIDERS: Admitting Provider Physician Assistant; Emergency Provider Emergency Medicine; PCP Pediatrics; Visit Provider Psychiatry & Neurology Neurology | DX: R53.1 Weakness (principal); I10 Essential (primary) hypertension | CPT/HCPCS: 99222 ==

== ENCOUNTER → 2023-05-16 12:35 | Outpatient (BNV) | payer OTHER, SELFPAY | PROVIDERS: Admitting Provider Physician Assistant; Emergency Provider Emergency Medicine; PCP Pediatrics; Visit Provider Internal Medicine | DX: I63.9 Cerebral infarction, unspecified (principal) | CPT/HCPCS: 99223; 99239; G0180 ==

== ENCOUNTER 2023-09-28 14:06 | Outpatient (AMB) | payer OTHER, SELFPAY ==
--- NOTE | 2023-09-28 14:08 | MHC.OFFVIS ---
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 He has made risk factors including hypertension, diabetes, dyslipidemia. In 05/18/2023, he was apparently admitted for left leg weakness. At that time, he is diagnosed with small acute right coronary radiata ischemic infarct. He was put on Plavix for a month and now on aspirin. From the cardiac standpoint, no known coronary disease, myocardial infarction or cardiomyopathy. Within limits of his activity, he does not have any clear-cut chest pains or shortness of breath. Apparently, his brother also had atrial fibrillation but now past. He had many cancers including thyroid, lung and prostate. Also had blood clots. [facility] Medical History (Updated 09/28/23 @ 14:21 by Jerry Castro MD) HLD (hyperlipidemia) HTN (hypertension) Diabetes Family History (Updated 09/28/23 @ 14:14 by Rosy Arnold) Brother New onset a-fib Social History (Updated 09/28/23 @ 14:14 by Rosy Arnold) Household Members: Family Housing: House Do you presently have visiting nurse or other home services: No Alcohol intake: current Alcohol intake frequency: holidays/special occasions only Patient Tobacco Use Status: Never used Tobacco service: No Review of Systems Const Denies weakness ENT Denies dizziness Card Denies chest pain, Denies chest pain with activity, Denies syncope, Denies rapid heart rate, Denies pedal edema, Denies edema, Denies leg edema, Denies lightheadedness, Denies palpitations, Denies dyspnea, Denies dyspnea on exertion and Denies orthopnea Resp Denies cough, Denies dyspnea and Denies dyspnea on exertion GI Denies hematochezia and Denies change in stool character Musc Denies abnormal gait, Denies muscle cramps, Denies muscle weakness, Denies numbness, Denies radiating pain into limb and Denies tingling Neuro Denies abnormal gait, Denies dizziness, Denies syncope, Denies numbness, Denies tingling and Denies weakness Endo Denies palpitations Physical Exam Vital Signs: Last Vital Signs Pulse 97 09/28/23 14:09 BP 138/68 09/28/23 14:09 BMI result Body Mass Index 26.7 Const General: comfortable and no acute distress Orientation/consciousness: patient oriented x3 HEENT Other: Unremarkable Head: Yes normal to inspection Neck Neck: Yes normal visual inspection Chest Chest palpation & inspection: normal inspection of the chest Resp Auscultation: clear to auscultation bilaterally Cardio Palpation: normal PMI Heart sounds: S1 normal heart sound present, S2 normal heart sound present, no gallops, no murmurs and no rubs GI Palpation (GI): Soft to palpation Back/Spine/Pelvis Other: unremarkable Skin General skin exam: no rashes or lesions noted Neuro General: patient oriented x3 Extrem General: Yes normal to inspection Psych Mental Status: mental status grossly normal Assessment & Plan Assessment & Plan (1) Acute CVA (cerebrovascular accident): Code(s): I63.9 - Cerebral infarction, unspecified Category: Medical (2) Diabetes: Code(s): E11.9 - Type 2 diabetes mellitus without complications Category: Medical (3) HTN (hypertension): Code(s): I10 - Essential (primary) hypertension Category: Medical (4) HLD (hyperlipidemia): Code(s): E78.5 - Hyperlipidemia, unspecified Category: Medical Plan EKG with underlying sinus rhythm at 93/Min; leftward axis; no significant ST-T changes and otherwise unremarkable. Normal [place] and corrected QT. In the echocardiogram, LVEF 64%. No wall motion abnormalities. Mild left ventricular hypertrophy. Ascending aortic size 3.8 cm. Head and neck CTA-mild underlying microangiopathy. No proximal occlusion. 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 Brain MRI with acute infarct in the right posterior coronary radiata. Chronic microangiopathy. Overall, suspect stroke related to vascular causes. Less likely from atrial fibrillation. We can screen him for the same any way as there is a family history. We can start with 30 day monitor. If necessary, consider implantable loop recorder. Otherwise, due to numerous vascular risk factors as well as with stroke, obtain stress test to look for any significant coronary disease. Aggressive risk factor modification of diabetes, hypertension, dyslipidemia through primary care. Follow-up after testing. Orders: Orders CA echo stress exercise Today R07.2 - Precordial pain ECG 30 day event monitor Today I48.0 - Paroxysmal atrial fibrillation Medications: Discontinued clopidogrel (Plavix) Discontinued Reason: Patient no longer taking 75 mg PO DAILY 30 tabs 0RF Coding Level of Care Code New Pt Level 4 (03413) Diagnoses Acute CVA (cerebrovascular accident) I63.9 Diabetes E11.9 HTN (hypertension) I10 HLD (hyperlipidemia) E78.5
[2023-09-28 14:09] VITALS: BP 138/68; PULSE 97; BMI 26.7
== END 2023-09-28 14:48 | disposition home or self-care (01) ==
PROVIDERS: PCP Pediatrics; Visit Provider Internal Medicine
DX: I69.398 Other sequelae of cerebral infarction (principal); E11.9 Type 2 diabetes mellitus without complications; I10 Essential (primary) hypertension; E78.5 Hyperlipidemia, unspecified
CPT/HCPCS: 99214

== ENCOUNTER → 2023-09-28 14:06 | Outpatient (BNVA) | payer OTHER, SELFPAY | PROVIDERS: PCP Pediatrics; Visit Provider Internal Medicine ==

== ENCOUNTER → 2023-11-17 10:44 | Outpatient (REF) | payer OTHER, SELFPAY ==
--- NOTE | 2023-11-17 10:48 | CA_ITS ---
Acquisition Time: 2023-11-17 10:39:19 Total Exercise Time: 00:03:25 Test Indications: PRECORDIAL PAIN Medications: Protocol: ALY Max HR: 153 BPM 127% of Pred: 120 BPM Max BP: 130/086 mmHG Max Work Load: 4.6 METS Exercise stress test exercise 3 min 25 sec of Aly protocol achieving 92% MPHR, without anginal symptoms, with brisk HR response, with isolated PACs, with normotensive response to execise at achieved workload, without EKG changes at achieved workload. Echo images obtained by tech at rest and immediately post peak exercise. Degfinity contrast used. Test reviewed with Dr. Holland STRESS ECHO : Technique : Images were obtained at rest and immediately post exercise within 1 minute. Definity contrast was used to enhance endocardial definition. Images were obtained in multiple views and compared side to side. Findings : Images at rest are of good quality. There is notmal LV systolic function with normal wall motion. LV diastolic function is suggestive og impaired relaxation filling pattern with normal filling pressures. Post exercise images shows good augmentation of overall LV systolic function. There is lack of thickening of mid anteroseptal, distal septal and distal anterior wall, suggestive of ischmie in mid to distal LAD territory. No chnage in filling pressures post exercise. Conclusion : Stress echo is suggestive of ischemia in mid-distal LAD territory at achieved workload. Referred By: Jerry Castro Overread By: TORSTEN HOLLAND MD
--- NOTE | 2023-11-17 10:48 | HM_ITS ---
* Total procedure length 30 days. * Wear time 25 days. * Underlying rhythm is sinus with an average rate of 87/Min. * About 38% of the time, rate > 100/Min. * Supraventricular ectopy noted with a burden of 1.3%. Very brief runs noted. * Rare ventricular ectopy with a burden of < 1%. One run of wide complex rhythm for 9 beats. * No significant pauses or high-grade AV blocks. * No symptoms mentioned. MTDD
== END ==
LOC: HO.CARD 10:44
PROVIDERS: PCP Pediatrics; Visit Provider Internal Medicine
DX: R07.2 Precordial pain (principal); I48.0 Paroxysmal atrial fibrillation
CPT/HCPCS: 93270; 93350; Q9957

== ENCOUNTER → 2023-11-17 10:48 | Outpatient (BNV) | payer OTHER, SELFPAY | PROVIDERS: PCP Pediatrics; Visit Provider Internal Medicine Cardiovascular Disease | DX: I47.10 Supraventricular tachycardia, unspecified (principal) | CPT/HCPCS: 93272; 93351; 93352 ==

== ENCOUNTER 2023-12-26 13:06 | Outpatient (AMB) | payer OTHER, SELFPAY ==
[2023-12-26 13:07] VITALS: BP 108/52; PULSE 101; BMI 28.0
--- NOTE | 2023-12-26 13:07 | MHC.OFFVIS ---
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 He now presents for follow-up. Today he reports he has been feeling well with no concerning symptoms. He has some mild weakness in his left leg. He says he walks with a limp. 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 No chest discomfort at rest or with activity. No shortness of breath, PND, orthopnea or edema. No palpitations, lightheadedness, presyncope, syncope, falls. Has not had any new neurological changes. Takes all his meds as directed. [facility] Medical History HLD (hyperlipidemia) HTN (hypertension) Diabetes Family History Brother New onset a-fib Social History Household Members: Family Housing: House Do you presently have visiting nurse or other home services: No Alcohol intake: current Alcohol intake frequency: holidays/special occasions only Patient Tobacco Use Status: Never used Tobacco service: No Review of Systems Const All systems reviewed & are unremarkable except as noted in HPI and below ENT Denies dizziness Card Denies chest pain, Denies chest pain at rest, Denies chest pain with activity, Denies rapid heart rate, Denies pedal edema, Denies edema, Denies leg edema, Denies lightheadedness, Denies palpitations, Denies dyspnea, Denies dyspnea on exertion and Denies orthopnea Resp Denies cough, Denies dyspnea and Denies dyspnea on exertion GI Denies hematochezia and Denies change in stool character Musc Denies abnormal gait, Denies limited range of motion, Denies muscle cramps, Reports muscle weakness (Mild weakness in left leg), Denies numbness, Denies radiating pain into limb, Denies stiffness and Denies tingling Neuro Denies abnormal gait, Denies dizziness, Denies numbness and Denies tingling Endo Denies palpitations Physical Exam Vital Signs: Last Vital Signs Pulse 101 H 12/26/23 13:07 BP 108/52 L 12/26/23 13:07 BMI result Body Mass Index 28.0 Const General: cooperative, healthy appearing, comfortable and no acute distress Orientation/consciousness: patient oriented x3 Neck Neck: Yes normal visual inspection and Yes no JVD Resp Effort & Inspection: normal respiratory effort Auscultation: clear to auscultation bilaterally, no rales, no rhonchi and no wheezes Cardio Jugular venous distension: no JVD Rate: regular rate Rhythm: regular rhythm Heart sounds: S1 normal heart sound present, S2 normal heart sound present, no murmurs and no rubs Neuro General: patient oriented x3 Extrem General: Yes normal to inspection Psych Appearance: grossly normal Mental Status: mental status grossly normal Speech and movement: Normal speech and movement present Assessment & Plan Assessment & Plan (1) Acute CVA (cerebrovascular accident): Code(s): I63.9 - Cerebral infarction, unspecified Category: Medical Plan: Hospitalization 04/2023 with finding of new CVA, symptom of left leg weakness. He was referred to Cardiology in follow-up to evaluate for possible embolic cause. He has no known history of atrial fibrillation. He did wear a 30 day cardiac event monitor. Unfortunately the results are not available at the time of this visit. I will plan to call him when test results are available. At this time he is not noticing any heart palpitations or any concerning symptoms. He has not had any new neurological changes. He continues on daily aspirin. (2) Left-sided weakness: Code(s): R53.1 - Weakness Category: Medical Plan: As above (3) Abnormal stress test: Code(s): R94.39 - Abnormal result of other cardiovascular function study Category: Medical Plan: As part of cardiac workup he did have a stress echocardiogram done 11/17/2023 which did show decreased exercise capacity, no EKG changes of ischemia however echo images were suggestive of ischemia in the mid to distal LAD territory. He has not have anginal symptoms. He was referred for a CTA of the coronary arteries which he is scheduled to be done on 01/19/2024. Stress test results and rationale for the CTA of the coronaries reviewed with him. At this time will have him continue his aspirin and atorvastatin. Signs and symptoms of angina reviewed. Cardiology follow-up in 3-4 months to discuss all findings. (4) HTN (hypertension): Code(s): I10 - Essential (primary) hypertension Category: Medical Plan: [place] blood pressure goal less than 130/85. Low normal at this time, asymptomatic. Continue losartan. (5) HLD (hyperlipidemia): Code(s): E78.5 - Hyperlipidemia, unspecified Category: Medical Plan: [place] LDL goal less than 70 in patient with diabetes. He is on atorvastatin 40 mg daily. Followed by his PCP. Plan Time spent on chart review, documentation, interview and assessment Coding Level of Care Code Est Pt Level 4 (52421) Complex EM visit Add On G2211 Diagnoses Acute CVA (cerebrovascular accident) I63.9 Left-sided weakness R53.1 Abnormal stress test R94.39 HTN (hypertension) I10 HLD (hyperlipidemia) E78.5 Time Spent (min) 28
== END 2023-12-26 13:33 | disposition home or self-care (01) ==
PROVIDERS: PCP Pediatrics; Visit Provider Nurse Practitioner Family
DX: I63.9 Cerebral infarction, unspecified (principal); R53.1 Weakness; R94.39 Abnormal result of other cardiovascular function study; I10 Essential (primary) hypertension; E78.5 Hyperlipidemia, unspecified
CPT/HCPCS: 99214

== ENCOUNTER → 2023-12-26 13:06 | Outpatient (BNVA) | payer OTHER, SELFPAY | PROVIDERS: PCP Pediatrics; Visit Provider Nurse Practitioner Family ==

== ENCOUNTER 2024-01-13 14:56 | Outpatient (REF) | payer OTHER, SELFPAY ==
[2024-01-13 15:55] LABS: Anion Gap 12 (12-20); Blood Urea Nitrogen 28 mg/dL (9-16); Calcium 9.7 mg/dL (8.4-10.2); Carbon Dioxide 24 mmol/L (22-29); Chloride 110 mmol/L (96-108); Estimated Glomerular Filt Rate > 60; Glucose Random 191 mg/dL (60-115); Potassium 4.1 mmol/L (3.3-5.1); Sodium 142 mmol/L (135-145)
== END 2024-01-13 14:57 | disposition home or self-care (01) ==
LOC: HO.LAB 14:56
PROVIDERS: PCP Pediatrics; Visit Provider Internal Medicine
DX: I10 Essential (primary) hypertension (principal)
CPT/HCPCS: 36415; 80048

== ENCOUNTER 2024-01-31 15:04 | Outpatient (REF) | payer OTHER, SELFPAY ==
[2024-01-31 18:16] LABS: Cholesterol 156 mg/dL (<200); HDL Cholesterol 55 mg/dL (>40); LDL Cholesterol Calculated 82 mg/dL (<100); Triglycerides 95 mg/dL (<150)
== END 2024-01-31 15:05 | disposition home or self-care (01) ==
LOC: HO.LAB 15:04
PROVIDERS: PCP Pediatrics; Visit Provider Internal Medicine
DX: I25.10 Atherosclerotic heart disease of native coronary artery without angina pectoris (principal)
CPT/HCPCS: 36415; 80061

== ENCOUNTER 2024-05-24 13:04 | Outpatient (AMB) | payer OTHER, SELFPAY ==
--- NOTE | 2024-05-24 13:08 | A.OFFVIS_ITS ---
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 He now presents for follow-up. Today he reports he has been feeling well with no concerning symptoms. He has some mild weakness in his left leg and walks with a limp. 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 No chest discomfort at rest or with activity. No shortness of breath, PND, orthopnea or edema. No palpitations, lightheadedness, presyncope, syncope, falls. Has not had any new neurological changes. Takes all his meds as directed. [facility] Medical History HLD (hyperlipidemia) HTN (hypertension) Diabetes Family History Brother New onset a-fib Social History Household Members: Family Housing: House Do you presently have visiting nurse or other home services: No Alcohol intake: current Alcohol intake frequency: holidays/special occasions only Patient Tobacco Use Status: Never used Tobacco service: No Review of Systems Const All systems reviewed & are unremarkable except as noted in HPI and below Card Denies chest pain, Denies chest pain at rest, Denies chest pain with activity, Denies rapid heart rate, Denies leg edema, Denies palpitations, Denies dyspnea, Denies dyspnea on exertion and Denies orthopnea Resp Denies dyspnea and Denies dyspnea on exertion GI Denies no additional complaints Musc Denies no additional complaints Neuro Denies no additional complaints Endo Denies palpitations Physical Exam Vital Signs: Last Vital Signs Pulse 79 05/24/24 13:14 BP 114/62 05/24/24 13:14 BMI result Body Mass Index 28.2 Const General: cooperative, healthy appearing, comfortable and no acute distress Orientation/consciousness: patient oriented x3 Neck Neck: Yes normal visual inspection Resp Effort & Inspection: normal respiratory effort Auscultation: clear to auscultation bilaterally, no rales, no rhonchi and no wheezes Cardio Rate: regular rate Rhythm: regular rhythm Heart sounds: S1 normal heart sound present, S2 normal heart sound present, no gallops, no murmurs and no rubs Neuro General: patient oriented x3 Extrem General: Yes normal to inspection Psych Appearance: grossly normal Mental Status: mental status grossly normal Speech and movement: Normal speech and movement present Office Procedures EKG Details: Today, read by me, normal sinus rhythm, incomplete RBBB, LAFB, rate 79, Qtc 426ms [id number], Complete Assessment & Plan Assessment & Plan (1) Acute CVA (cerebrovascular accident): Code(s): I63.9 - Cerebral infarction, unspecified Category: Medical Plan: Hospitalization 04/2023 with finding of new CVA, symptom of left leg weakness. CVA thought to be related to vascular causes with his history of smoking. He has no known history of atrial fibrillation. echocardiogram from 05/16/2023 showed EF 64%, Mild LVH, both atria normal size. He did wear a 30 day cardiac event monitor starting on 11/17/2023 which showed sinus rhythm with average heart rate 87, 38% of the time greater than 100, SVE with brief runs, 1.3% of time, no atrial fibrillation, one 9 beat wide complex rhythm, Rare VE. EKG today showing sinus rhythm. No reports of heart palpitations. No further evaluation for AFib at this time. He continues on daily aspirin. (2) Left-sided weakness: Code(s): R53.1 - Weakness Category: Medical Plan: As above (3) Abnormal stress test: Code(s): R94.39 - Abnormal result of other cardiovascular function study Category: Medical Plan: As part of cardiac workup he did have a stress echocardiogram done 11/17/2023 which did show decreased exercise capacity, no EKG changes of ischemia however echo images were suggestive of ischemia in the mid to distal LAD territory. He underwent a CTA of the coronary arteries which did show [id number] stenosis in the LAD, left circumflex and RCA. He has been completely asymptomatic. His EKG today does not show signs of ischemia. Test results reviewed with him in detail. Informed that he has coronary artery disease. signs and symptoms of angina reviewed in detail. Instructed to call if he has new symptoms and to seek emergency care if needed. continue aspirin indefinitely. Continue high-dose atorvastatin with ideal LDL goal less than 70. Continue losartan for good blood pressure control. 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 Cardiology follow up in 6 mo, sooner if needed (4) CAD (coronary artery disease): Comment: CTA of coronary arteries done 01/19/2024 showing left main less than 25% stenosis, proximal to mid LAD 50-70% stenosis, distal LAD 25-50% stenosis, 1st diagonal 25-50% stenosis, left circumflex proximal 40-60% stenosis, OM2 25-50% stenosis, RCA mid 25-50% stenosis Code(s): I25.10 - Atherosclerotic heart disease of [place] coronary artery without angina pectoris Category: Medical Plan: asymptomatic (5) HTN (hypertension): Code(s): I10 - Essential (primary) hypertension Category: Medical Plan: [place] blood pressure goal less than 130/85. Normal at this time. No med changes. Continue losartan. (6) HLD (hyperlipidemia): Code(s): E78.5 - Hyperlipidemia, unspecified Category: Medical Plan: [place] LDL goal less than 70 in patient with diabetes, CAD. labs done 01/31/2024 showed LDL 82. At that time his atorvastatin was increased to 80 mg daily. He says he has had repeat fasting lipids at his PCP office. Will call there to obtain. Plan Time spent on chart review, documentation, interview and assessment Coding Level of Care Code Est Pt Level 4 (71320) Complex EM visit Add On G2211 Diagnoses Acute CVA (cerebrovascular accident) I63.9 Left-sided weakness R53.1 Abnormal stress test R94.39 CAD (coronary artery disease) I25.10 HTN (hypertension) I10 HLD (hyperlipidemia) E78.5 CPT Codes EKG - CPT: 52625-[id number], Complete ([id number]) Time Spent (min) 28
[2024-05-24 13:14] VITALS: BP 114/62; PULSE 79; BMI 28.2
== END 2024-05-24 13:51 | disposition home or self-care (01) ==
LOC: HO.HCS 13:05
PROVIDERS: PCP Pediatrics; Visit Provider Nurse Practitioner Family
DX: I63.9 Cerebral infarction, unspecified (principal); R53.1 Weakness; R94.39 Abnormal result of other cardiovascular function study; I25.10 Atherosclerotic heart disease of native coronary artery without angina pectoris; I10 Essential (primary) hypertension; E78.5 Hyperlipidemia, unspecified
CPT/HCPCS: 93010; 99214

== ENCOUNTER → 2024-05-24 13:04 | Outpatient (BNVA) | payer OTHER, SELFPAY | PROVIDERS: PCP Pediatrics; Visit Provider Nurse Practitioner Family | DX: I10 Essential (primary) hypertension (principal); I69.344 Monoplegia of lower limb following cerebral infarction affecting left non-dominant side; I25.10 Atherosclerotic heart disease of native coronary artery without angina pectoris; R94.39 Abnormal result of other cardiovascular function study; E78.5 Hyperlipidemia, unspecified | CPT/HCPCS: 93005 ==

== ENCOUNTER 2024-11-27 12:21 | Outpatient (AMB) | payer MEDICARE, OTHER, SELFPAY ==
--- NOTE | 2024-11-27 12:31 | A.OFFVIS_ITS ---
Vital Signs 11/27/24 12:32 Height 5 ft 9 in Weight 187 lb 6.287 oz BMI 27.7 BP 120/62 Blood Pressure Location Lt brachial Position Sitting Pulse 82 Pulse Source Pulse Oximeter Intake Visit Reasons: 6m follow up Allergies No Known Allergies Allergy (Verified 05/24/24 13:23) Medication List - Last Reconciled 11/27/24 by Jerry Castro MD allopurinol 200 mg PO DAILY aspirin 81 mg PO DAILY atorvastatin 80 mg PO BEDTIME empagliflozin (Jardiance) 25 mg PO DAILY losartan 50 mg PO DAILY metformin ER 2,000 mg PO QAM pioglitazone 30 mg PO DAILY HPI Comments Details: Arsh returns for follow-up. In the past, he was referred her after a stroke. Many risk factors including diabetes, hypertension, dyslipidemia. In 2023, admitted for leg weakness and in that setting found to have acute right coronary radiata ischemic infarct. He has improved from that standpoint. He underwent further workup from cardiac and was diagnosed to have coronary disease but he does not have any clinical angina. He is on optimal medical therapy. Within limits of his activity, he does not have any symptoms like angina or shortness of breath. He states he can walk without any issues and also go up and down flights of stairs without any concerns. There is no history of any atrial fibrillation. [facility] Medical History HLD (hyperlipidemia) HTN (hypertension) Diabetes Family History Brother New onset a-fib Social History Household Members: Family Housing: House Do you presently have visiting nurse or other home services: No Alcohol intake: current Alcohol intake frequency: holidays/special occasions only Patient Tobacco Use Status: Never used Tobacco service: No Review of Systems Const Denies weakness ENT Denies dizziness Card Denies chest pain, Denies chest pain with activity, Denies syncope, Denies rapid heart rate, Denies pedal edema, Denies edema, Denies leg edema, Denies lightheadedness, Denies palpitations, Denies dyspnea, Denies dyspnea on exertion and Denies orthopnea Resp Denies cough, Denies dyspnea and Denies dyspnea on exertion GI Denies hematochezia and Denies change in stool character Musc Denies abnormal gait, Denies muscle cramps, Denies muscle weakness, Denies numbness, Denies radiating pain into limb and Denies tingling Neuro Denies abnormal gait, Denies dizziness, Denies syncope, Denies numbness, Denies tingling and Denies weakness Endo Denies palpitations Physical Exam Vital Signs: Last Vital Signs Pulse 82 11/27/24 12:32 BP 120/62 11/27/24 12:32 BMI result Body Mass Index 27.7 Const General: comfortable and no acute distress Orientation/consciousness: patient oriented x3 HEENT Other: Unremarkable Head: Yes normal to inspection Neck Neck: Yes normal visual inspection Chest Chest palpation & inspection: normal inspection of the chest Resp Auscultation: clear to auscultation bilaterally Cardio Palpation: normal PMI Heart sounds: S1 normal heart sound present, S2 normal heart sound present, no gallops, no murmurs and no rubs GI Palpation (GI): Soft to palpation Back/Spine/Pelvis Other: unremarkable Skin General skin exam: no rashes or lesions noted Neuro General: patient oriented x3 Extrem General: Yes normal to inspection Psych Mental Status: mental status grossly normal Assessment & Plan Assessment & Plan (1) Atherosclerotic cardiovascular disease: Code(s): I25.10 - Atherosclerotic heart disease of [place] coronary artery without angina pectoris Category: Medical Plan: Coronary CTA-12/2023-left main with < 25% stenosis; proximal to mid LAD with mixed plaques causing multifocal 50-70% stenosis. First diagonal with 25-50% narrowing. Multifocal 25-50% stenosis in the distal LAD. Circumflex heavily calcified in the proximal subsection with about 40-60% stenosis. Right coronary artery with multifocal 25-50% stenosis. FFR value was 0.88 in the mid circumflex and 0.81 in distal LAD. In the absence of angina, mainly risk factor modification. (2) Cerebrovascular accident: Code(s): I63.9 - Cerebral infarction, unspecified Category: Medical Plan: Brain MRI in the past had revealed an acute infarct in the posterior right lopes radiata. No large vessel stenosis in the CTA. Again treat risk factors mainly. (3) HTN (hypertension): Code(s): I10 - Essential (primary) hypertension Category: Medical Plan: Stable on the current regimen. Listed to be on losartan. (4) Type 2 diabetes mellitus with unspecified complications: Code(s): E11.8 - Type 2 diabetes mellitus with unspecified complications Category: Medical Plan: On pioglitazone, metformin, Jardiance. Hemoglobin A1c is reasonable at 7.2%. (5) HLD (hyperlipidemia): Code(s): E78.5 - Hyperlipidemia, unspecified Category: Medical Plan: Per [facility] labs, LDL 62 and triglycerides 60 mg/dL. On high-dose statins. Plan Discussion Notes During the visit, I discussed with the patient the importance of adhering to his medication regimen. We reviewed the partial blockages found in his coronary arteries and emphasized the need to monitor for any symptoms of angina or other cardiac events. Follow-up was scheduled for six months to reassess his condition and adjust treatment as necessary. Patient was informed and verbally consented to the use of an ambient scribe for clinic note documentation during this visit. Patient Instructions: - Continue current medications. - Monitor blood glucose levels regularly and aim for an A1c below 7.0. - Be alert for symptoms like chest pain or discomfort, especially during physical activity, and report them immediately. - Follow up in six months for reassessment. Coding Level of Care Code Est Pt Level 4 (57763) Complex EM visit Add On G2211 Diagnoses Atherosclerotic cardiovascular disease I25.10 Cerebrovascular accident I63.9 HTN (hypertension) I10 Type 2 diabetes mellitus with unspecified complications E11.8 HLD (hyperlipidemia) E78.5
[2024-11-27 12:32] VITALS: BP 120/62; PULSE 82; BMI 27.7
--- OUTSIDE RECORDS SUMMARY | 2024-11-27 13:26 | XMS_ITS | Encounter Summary ---
Author Organization [facility] Address [address] [place] [address] Phone Care Team Providers Care Database Administration Manager Name Role Phone Casimiro Vega MD Primary Care Provider [phone] Reason for Visit * Reason Comments Medication Refill Encounter Details Date Type Department Care Team (Late st Contact Info) Description 11/16/2024 Refill [facility] [address] [place] [id number] Casimiro Vega MD [address] [place] [address] [email or web address] Medication Refill Social History Tobacco Use Types Packs/Day Years Used Date Smoking Tobacco: Former Cigarettes 0.3 1 0 04/25/1973 - 04/25/1974 Smokeless Tobacco: Never Alcohol Use Standard Drinks/Week Comments Yes 2 (1 standard drink = 0.6 oz pur e alcohol) Education Answer Date Recorded Are you interested in more education? Not on jeremías e 06/25/2022 Are you concerned about learning? Not on file 06/25/2022 No 06/25/2022 No 06/25/2022 Digital Access Answer Date Recorded No 07/24/2022 No 07/24/2022 Reliable internet access at home? Not on file 07/24/2022 Device with a working camera? Not on file Sex and Gender Information Value Date Recorded Sex Assigned at Not on file Legal Sex Male 9:53 PM EDT Gender Identity Male 05/14/2021 2:23 PM EDT Sexual Orientation Not on file documented as of this encounter Progress Notes * Mckenna Orozco CMA - 11/19/2024 10:35 AM EDT Rx Care Gap Status - Instructions for Clinical Staff (prescriber discretion applies): > Mismatch review guide > At least one request does not meet full criteria. Specifics below. > Labs due: Please remind patient. > Orders needed: Click OPA and Accept to open SmartSet. Uric Acid - Needs order * LFTs BMP Visit Info Last visit: 11/01/2024 Casimiro Vega MD - [facility] > Requested f/u: Return in about 7 months (around 05/29/2025) for MIPPE. Upcoming visit: 06/06/2025 Casimiro Vega MD - [facility] ACTIONS TAKEN BY Mckenna Orozco CMA - Labs needed - Teed up orders and/or reminded pt. - Updated rx duration per protocol. Diabetes Rx Protocol (on Diabetes Registry) - pioglitazone HCl Criteria not met; renew for up to 3 months. Visit in the past 14 months: Yes Clinical criteria: - BMP within past year: None (has active order) - A1c within past 6 months: Yes - Lipid panel within past year: Yes (LDL 62 on 04/07/2024) - Urine microalbumin within past year or on MOIZ/ARB: Yes Gout Rx Protocol - allopurinol Criteria not met; renew for up to 3 months. Visit in the past 14 months: Yes Clinical criteria: - BMP within past year: None (has active order) - LFTs within past year: None (has active order) - CBC within past year: Yes - Uric acid within past year: No - Last Cr normal: N/a Lab Results Component Value Date SODIUM 141 10/01/2023 POTASSIUM 4.3 10/01/2023 CHLORIDE 105 10/01/2023 CO2 25 10/01/2023 BUN 17 10/01/2023 CREATININE 1.00 10/01/2023 EGFR 83 10/01/2023 Lab Results Component Value Date WBC 4.55 04/07/2024 HCT 41.7 04/07/2024 HGB 13.6 04/07/2024 PLT 174 04/07/2024 Lab Results Component Value Date AST 21 10/01/2023 ALT 26 10/01/2023 ALKALINE PHOSPHATASE 71 10/01/2023 TOTAL BILIRUBIN 0.6 10/01/2023 DIRECT BILIRUBIN <0.2 01/21/2018 Lab Results Component Value Date HEMOGLOBIN A1C 7.4 (H) 10/27/2024 MICROALB/CRE RATIO NOT CALCULATED 11/29/2022 URINE MICROALBUMIN <1.2 11/29/2022 Lab Results Component Value Date LDL 62 04/07/2024 HDL 62 04/07/2024 CARDIAC RISK RATIO 2.2 (L) 04/07/2024 TRIGLYCERIDES 60 04/07/2024 CHOLESTEROL 136 04/07/2024 Lab Results Component Value Date URIC ACID 4.6 06/04/2023 Health Maintenance Labs Due / Due Soon Topic Date Due CREATININE LEVEL 09/30/2024 POTASSIUM LEVEL 09/30/2024 documented in this encounter Plan of Treatment Upcoming Encounters Date Type Department Care Team (Late st Contact Info) Description 06/06/2025 11:00 AM EDT Office Visit [facility] Medicine [address] [place] [address] [place] [address] Casimiro Vega MD [address] [place] [address], [address] [place] [address] [email or web address] Scheduled Orders Name Type Priority Associated Diagnoses Orde r Schedule Uric acid Lab Routine Idiopathic chronic gout without tophus, unspecified site Expected: 11/19/2024, Expires: 11/19/2025 documented as of this encounter Visit Diagnoses Diagnosis Type 2 diabetes mellitus without complication, without long-term current use of insulin Idiopathic chronic gout without tophus, unspecified site documented in this encounter Additional Health Concerns Assessment Noted Time PHQ-2 Depression Total Score: 0 11/27/19 23 8:27 PM EDT documented as of this encounter Care Teams Database Administration Manager Relationship Specialty Start Date End Date Casimiro Vega MD [address] [place] [address], [address] [place] [address] [email or web address] PCP - General 03/03/17 documented as of this encounter Additional Source Comments The information contained in this document represents components of the legal health record. It is not the complete legal health record.[facility]
--- OUTSIDE RECORDS SUMMARY | 2024-11-27 13:26 | XMS_ITS | Encounter Summary ---
Author Organization [facility] Address [address] [place] [address] [place] [phone] Phone Care Team Providers Care Assembler Skylights Name Role Phone Casimiro Vega MD Primary Care Provider [phone] Encounter Details Date Type Department Care Team ([facility] Contact Info) Description 12/07/2021 Procedure Pass [facility]oscopy Admitting Dept Virtual Department [address] [place] [address] Social History Tobacco Use Types Packs/Day Years Used Date Smoking Tobacco: Former Cigarettes 0.3 1 0 04/25/1973 - 04/25/1974 Smokeless Tobacco: Never Alcohol Use Standard Drinks/Week Comments Yes 2 (1 standard drink = 0.6 oz pur e alcohol) Sex and Gender Information Value Date Recorded Sex Assigned at Not on file Legal Sex Male 9:53 PM EDT Gender Identity Male 05/14/2021 2:23 PM EDT Sexual Orientation Not on file documented as of this encounter Plan of Treatment Upcoming Encounters Date Type Department Care Team (Late Contact Info) Description 06/06/2025 11:00 AM EDT Office Visit [facility] [place] [facility] [address] [place] [address] [place] [address] Casimiro Vega MD [address] [place] [address] documented as of this encounter Visit Diagnoses Not on filedocumented in this encounter Additional Health Concerns Infection Onset Date Last Indicated Resolved Time COVID-19 04/09/2024 04/09/2024 04/30/2024 1:21 AM EST Assessment Noted Time PHQ-2 Depression Total Score: 0 07/04/19 21 4:32 PM EDT documented as of this encounter Care Teams Assembler Skylights Relationship Specialty Start Date End Date Casimiro Vega MD [address] [place] [address] PCP - General 03/03/17 documented as of this encounter Additional Source Comments The information contained in this document represents components of the legal health record. It is not the complete legal health record.[facility]
--- OUTSIDE RECORDS SUMMARY | 2024-11-27 13:26 | XMS_ITS | Clinical Summary ---
Author Organization [facility] Address [address] [place] [id number] Phone Care Team Providers Care Eyelet Punch Operator Name Role Phone Sofía George MD Primary Care Provider [phone] Allergies No known active allergies Medications blood sugar diagnostic Strp strips Testing blood sugar very infrequently 12/23/19 12 Active aspirin 81 MG EC tabletIndicatio ns:Right-sided lacunar stroke Take 1 tablet (81 mg total) by mouth every morning. 30 tablet 3 06/15/19 24 Active atorvastatin (LIPITOR) 80 MG tablet Take 1 tablet (80 mg total) by mouth daily. 90 tablet 3 03/21/19 25 Active losartan (COZAAR) 50 MG tabletIndicatio ns:Essential hypertension Take 1 tablet by mouth once daily 90 tablet 3 06/07/19 25 Active metFORMIN (GLUCOPHAGE-XR) 500 MG 24 hr tabletIndicatio ns:Type 2 diabetes mellitus without complication, without long-term current use of insulin Take 4 tablets (2,000 mg total) by mouth daily with breakfast. 360 tablet 3 06/21/19 25 Active JARDIANCE 25 mg tabletIndicatio ns:Type 2 diabetes mellitus without complication, without long-term current use of insulin Take 1 tablet by mouth once daily 90 tablet 3 09/19/19 25 Active betamethasone valerate 0.1 % creamIndication s:Eczema of both hands Apply topically 2 (two) times a day as needed (eczema). 45 g 1 11/02/19 25 Active pioglitazone (ACTOS) 30 MG tabletIndicatio ns:Type 2 diabetes mellitus without complication, without long-term current use of insulin Take 1 tablet by mouth once daily 90 tablet 11/20/19 25 Active allopurinol (ZYLOPRIM) 100 MG tabletIndicatio ns:Idiopathic chronic gout without tophus, unspecified site Take 2 tablets by mouth once daily 180 tablet 11/20/19 25 Active pioglitazone (ACTOS) 30 MG tabletIndicatio ns:Type 2 diabetes mellitus without complication, without long-term current use of insulin Take 1 tablet by mouth once daily 90 tablet 3 10/17/19 24 2024 Discontinued allopurinol (ZYLOPRIM) 100 MG tabletIndicatio ns:Idiopathic chronic gout without tophus, unspecified site Take 2 tablets by mouth once daily 180 tablet 08/02/19 25 2024 Discontinued Active Problems Problem Noted Date Diagnosed Date Tick bite of right lower leg 12/23/2023 Assessment & Plan (12/23/2023 3:48 PM EDT): Recent tick bite with local reaction but no systemic symptoms. No signs of Lyme disease at this time. -Provide prophylactic dose of Doxycycline (2 pills taken together once). -Monitor for signs of Lyme disease (fevers, chills, joint aches, headaches, fatigue) over the next month. -If symptoms develop, contact office for Lyme disease testing. History of lacunar cerebrovascular accident (CVA ) 05/20/2023 Overview (05/20/2023): Pure motor findings left lower extremity. R lopes radiata lesion 7mm diameter. Nonstenotic disease of posterior circulation. Assessment & Plan (05/20/2023 8:50 PM EDT): PT referral placed for neurorehab. Completed 3 course of Plavix, continue baby aspirin thereafter. Importance of blood pressure control, strict diabetes management with maintenance of hemoglobin A1c at goal to prevent recurrence discussed with patient. Kidney stone 01/23/2018 Renal calculi 01/22/2018 Assessment & Plan (01/22/2018 3:08 PM EST): Patient admitted to the hospital for treatment of a renal stone. 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 He will be observed overnight if he is stable and his creatinine improves he could go home tomorrow. Urology wrote a prescription for Keflex for several days and patient should follow-up in the office this week Benign prostatic hyperplasia 04/25/2017 Assessment & Plan (10/11/2023 8:55 PM EDT): No change in voiding habits, patient concerned for cancer risk given sibling's hx of several cancers. Gout 04/25/2017 Assessment & Plan (10/05/2020 7:29 PM EDT): Stable, continue current regimen. Assessment & Plan (07/06/2020 6:34 PM EDT): Stable on allopurinol, no recent gout attacks. Continue current regimen. Assessment & Plan (04/18/2018 5:55 PM EST): Stable, continue current regimen. Due for repeat uric acid. Hyperlipidemia 04/25/2017 Assessment & Plan (11/01/2024 1:37 PM EDT): Check lipids with next labs fasting. Tolerating statin, continue current regimen. Continue lifestyle changes. Orders: Lipid panel; Future Assessment & Plan (04/09/2024 4:42 PM EST): Stable, continue current regimen. Assessment & Plan (06/11/2023 10:47 AM EDT): Continue atorvastatin, lipid check annually Assessment & Plan (05/20/2023 8:52 PM EDT): Increased atorvastatin, target lipid under 70, reassess at followup. Assessment & Plan (11/29/2022 3:25 PM EDT): Previously stable, check lipids in April. Continue simvastatin. Assessment & Plan (08/29/2022 8:32 PM EDT): Stable on statin, continue current medication. Assessment & Plan (05/09/2022 9:32 PM EDT): Stable, continue current regimen. Assessment & Plan (07/12/2021 7:34 PM EDT): Stable, continue current regimen. Assessment & Plan (04/28/2021 7:38 PM EST): Tolerating simvastatin, due for lipids before next visit. Encouraged to follow heart healthy diet. Assessment & Plan (01/02/2021 5:04 PM EDT): Continue simvastatin. Assessment & Plan (10/05/2020 7:29 PM EDT): Stable, continue current regimen. Assessment & Plan (07/06/2020 6:34 PM EDT): Tolerating statin, continue current regimen. Encouraged him to redouble his efforts with lifestyle change and heart healthy diet. Assessment & Plan (10/16/2018 4:25 PM EDT): Tolerating simvastatin, due for lipids. Assessment & Plan (04/18/2018 5:53 PM EST): Tolerating statin, LDL is at target. Stable, continue current regimen. Essential hypertension 04/25/2017 Assessment & Plan (11/01/2024 1:37 PM EDT): Stable blood pressure, continue current regimen. Assessment & Plan (04/09/2024 4:42 PM EST): Stable, continue current regimen. Assessment & Plan (10/11/2023 8:55 PM EDT): Stable, continue current regimen. Assessment & Plan (06/11/2023 10:48 AM EDT): Improved on losartan 50mg daily Assessment & Plan (05/20/2023 8:51 PM EDT): Importance of proper blood pressure control discussed with patient to mitigate risk for recurrence of stroke. Assessment & Plan (11/29/2022 3:25 PM EDT): Controlled, continue current regimen. Assessment & Plan (08/29/2022 8:32 PM EDT): Stable, continue to monitor. Reassess at follow-up. Assessment & Plan (05/09/2022 9:32 PM EDT): Stable, continue current regimen. Assessment & Plan (07/12/2021 7:34 PM EDT): Stable, continue current regimen. Assessment & Plan (04/28/2021 7:38 PM EST): Stable on losartan, check labs prior to next visit. Recommend low-salt diet, avoid potato chips. Assessment & Plan (01/04/2021 3:22 PM EST): Stable, continue current regimen. Labs before next visit. Assessment & Plan (10/05/2020 7:29 PM EDT): Stable, continue current regimen. Assessment & Plan (07/06/2020 6:34 PM EDT): Elevated today, previously diet-controlled. Start losartan. Side effects discussed. Reassess blood pressure in 4 weeks. Assessment & Plan (10/16/2018 4:25 PM EDT): Stable with lifestyle changes, check labs. Assessment & Plan (04/18/2018 5:53 PM EST): Diet controlled. No micrialbuminuria by history. Assessment & Plan (04/25/2017 4:50 PM EST): Stable with lifestyle changes. Diabetes mellitus 04/25/2017 Assessment & Plan (11/01/2024 1:37 PM EDT): A1c is stable, just above target. Continue current medications. Recheck labs in 3 months. No retinopathy on last eye exam in May. No med changes for now. Orders: CBC and differential; Future Comprehensive metabolic panel; Future Microalbumin/creatinine ratio, random urine; Future Hemoglobin A1c; Future Assessment & Plan (04/09/2024 4:42 PM EST): Reassess in 3 months. Orders: Hemoglobin A1c; Future Assessment & Plan (07/14/2023 7:24 AM EDT): Improving fasting sugars, postprandials are still elevated. Increase pioglitazone to 30 mg daily, continue metformin and Jardiance as prescribed. Reassess in 2 to 3 months with labs ahead of visit. Assessment & Plan (06/11/2023 10:44 AM EDT): Not at target on max dosing Jardiance, metformin. Will add pioglitazone 15mg daily. SEs discussed. Check sugars at home. Call if shortness of breath or leg swelling. If tolerating pioglitazone, will continue and recheck A1c in 3 months. Assessment & Plan (05/20/2023 8:51 PM EDT): Most recent A1c during his admission was 7.5%. Recommend rechecking at follow- up. Continue current medications. Assessment & Plan (11/29/2022 3:15 PM EDT): Due for labs as orders had . Avoid concentrated sweets, candy. Assessment & Plan (08/29/2022 8:32 PM EDT): Near target, discussed need for adding medication unless lifestyle changes are made. There are several changes he can make in terms of limiting added sugar to bring his A1c down into goal. We will reassess in 3 months. He will call to schedule eye exam. Continue current medications. Assessment & Plan (05/09/2022 9:33 PM EDT): Patient agrees to cut back on chips-family size bag to last a week. Work on cutting back on ice cream, candy, donuts/muffins. He declines med dose adjustment. He agrees to reassess A1c in 3 months. Assessment & Plan (10/04/2021 9:45 PM EDT): Med nonadherence, change metformin to XR version, reassess at follow up after repeat A1c. Continue Jardiance. Assessment & Plan (07/10/2021 5:34 PM EDT): Improved, inconsistent with 2nd dose metformin, diet. Continue current regimen. Work on med adherence, diet. Review at followup. Recheck A1c in 3 months. Assessment & Plan (04/27/2021 5:28 PM EST): Nonadherent to metformin, often missing second dose. There is extended release daily dosing to use in place, he would like to exhaust current supply. Assessment & Plan (01/04/2021 3:21 PM EST): Increase Jardiance ot 25mg daily, continue metformin, avoid candy, excess carbs. He is due for eye exam and will call to arrange. Labs prior to next visit. Assessment & Plan (10/05/2020 7:31 PM EDT): Not at goal. Stop glimepiride, start empagliflozin. Side effects discussed. Continue metformin. Continue to work on changes in nutrition for better glycemic control. Assessment & Plan (07/06/2020 6:35 PM EDT): Sugars are well controlled on current regimen of Metformin, glimepiride. We discussed use of glimepiride and Asimia. Over time, this is a medication I would like to consider discontinuing, particularly if sugars are stable. Assessment & Plan (10/16/2018 4:24 PM EDT): Due for A1c, Lasic well-controlled. Assessment & Plan (04/18/2018 5:52 PM EST): Due for labs, previously well controlled. Referral for eye exam with Dr. Tineo. Patient to schedule. Assessment & Plan (01/22/2018 3:02 PM EST): metformin held. Accu-Chek and sliding scale insulin ordered Resolved Problems Problem Noted Date Diagnosed Date Resolved Date Acute kidney injury (nontraumatic) 01/22/2018 01/02/2021 Assessment & Plan (01/22/2018 3:01 PM EST): Probably due to volume depletion. Will continue the patient on IV fluid. For now hold metformin and allopurinol Encounters Date Type Department Care Team Description 11/16/[address] [place] [address] Sofía George MD Medication Refill 11/01/2024 1:00 PM EDT Office Visit [address] [place] [address] Sofía George MD Type 2 diabetes mellitus with other neurologic complication, without long-term current use of insulin (Primary Dx); Mixed hyperlipidemia; Eczema of both hands; Essential hypertension 10/27/2024 10:43 AM EDT - 10/27/2024 11:59 PM EDT Hospital Encounter [facility] [address] [place] [address] Sofía George MD Discharge Disposition: Home or Self Care 09/16/[address] [place] [address] Sofía George MD Medication Refill from Last 3 Months Immunizations Immunization Administration Dates Next Due COVID-19 (Pre-12/20) Pfizer Vaccine, mRNA, PF 01/11/2021,06/11/2020,05/17/2020 INFLUENZA, SPLIT VIRUS, TRIVALENT PF 12/03/2015 INFLUENZA, SPLIT VIRUS, TRIV ALENT W/ PRESERVATIVE IM 12/03/2015,12/05/2014 Influenza High-Dose Quadriva lent Preservative Free IM 11/29/2022,02/01/2022 Influenza Quadrivalent Preservative Free IM 11/28,12/06/2018,12/05/2014 Influenza, Unspecified Formulation 11/28/2017, Pneumococcal conjugate PCV13 10/17/2017 Pneumococcal polysaccharide PPSV23 07/03/2020 Td (adult),2 Lf Tetanus Toxo id, PF, Adsorbed 11/29/2022 Tdap 11/29/2011 Family History Medical History Relation Comments Diabetes mellitus Brother 1 Lung cancer Brother 2 Prostate cancer Brother 2 Stroke Brother 2 multiple strokes due to metastatic cancer. Tachycardia Brother 2 s/p ablation Thyroid cancer Brother 2 s/p thyroidectom y Diabetes mellitus Father Prostate cancer Father Stroke Father x4 Heart disease Maternal Grandfather Diabetes mellitus Maternal Uncle Diabetes mellitus Mother Prostate cancer Paternal Uncle metastatic to sp ine Relation Status Comments Brother 1 Alive Brother 2 Father Maternal Grandfather Maternal Uncle Mother (Age 80) Paternal Uncle Social History Tobacco Use Types Packs/Day Years Used Date Smoking Tobacco: Former Cigarettes 0.3 1 0 04/25/1973 - 04/25/1974 Smokeless Tobacco: Never Tobacco Cessation:Counseling Given: Not Answered Alcohol Use Standard Drinks/Week Comments Yes 2 [...] PM EDT Sexual Orientation Not on file Last Filed Vital Signs Vital Sign Reading Time Taken Comments Blood Pressure 118/60 11/01/2024 1:01 PM EDT Pulse 103 11/01/2024 1:01 PM EDT Temperature 36.2 C (97.1 F) 11/01/2024 1:01 PM EDT Respiratory Rate 14 12/07/2021 11:12 AM EDT Oxygen Saturation 95% 11/01/2024 1:01 PM EDT Inhaled Oxygen Concentration - - Weight 86.6 kg (191 lb) 11/01/2024 1:01 PM EDT Height 177.8 cm (5' 10 ) 12/23/2023 3:16 PM EDT Body Mass Index 27.41 12/23/2023 3:16 PM EDT Plan of Treatment Upcoming Encounters Date Type Department Care Team (Late st Contact Info) Description 06/06/2025 11:00 AM EDT Office Visit [facility] [address] [place] [address] Sofía George MD [address] [facility] [place] [address] [email or web address] Maintenance Due Date Last Done Comments COLOGUARD 2001 FIT TEST 2001 FOBT 2001 SIGMOIDOSCOPY 2001 VIRTUAL COLONOSCOPY 2001 ZOSTER VACCINES (1 of 2) 2006 RSV VACCINE (1 - Risk 60-74 years 1-dose series) 2016 DEPRESSION SCREENING 11/27/2023 11/26/2022 INFLUENZA VACCINE (#1) 2024 , 02/01/2022, 12/10/2020, Additional history exists CREATININE LEVEL 09/30/2024 10/01/2023, 07/2023, 11/29/2022, Additional history exists POTASSIUM LEVEL 09/30/2024 10/01/2023, 04/0 07/2023, 11/29/2022, Additional history exists COVID-19 VACCINE ( - 2024- season) 2024 01/11/2021, 06/11/2020, 05/17/2020 HEMOGLOBIN A1C 04/27/2025 10/27/2024, 02/0 09/2024, 10/01/2023, Additional history exists DIABETIC EYE EXAM 04/30/2025 04/30/2024, 12/03/2016 BLOOD PRESSURE 05/01/2025 11/01/2024 PNEUMOCOCCAL VACCINES (50+ years) (3 of 3 - PCV20 or PCV21) 07/03/2025 07/03/2020, 10/17/2017 COLONOSCOPY 12/08/2031 12/07/2021 COLORECTAL CANCER SCREENING 12/08/2031 Adult Td,Tdap Booster 11/29/2032 11/29/2022, 012 HEPATITIS C SCREENING Completed 09/20/2020 SMOKING STATUS SCREENING (Once After 26 Yrs) Completed 11/01/2024 HEPATITIS A VACCINES Aged Out No long er eligible based on patient's age to complete this topic HIB VACCINES Aged Out No longer eligi ble based on patient's age to complete this topic MENINGOCOCCAL VACCINES (ACWY) Aged Out No longer eligible based on patient's age to complete this topic MENINGOCOCCAL VACCINES (B) Aged Out N o longer eligible based on patient's age to complete this topic Medical Devices Implanted Type Area Shoe Repairer Device Identifier Shelf Expiration Date Model / Serial / Lot Stent Variable 6fr 22-30 - [id number] Implanted:Qty: 1 on 01/22/2018 by Patricia Gandhi MD at [facility] Left: [employer] 08/02/2020 [id number] / / [id number] Procedures Procedure Name Priority Date/Time Associated Diagnosis Comments HEMOGLOBIN A1C Routine 10/27/2024 10:46 AM EDT Type 2 diabetes mellitus with other neurologic complication, without long-term current use of insulin DIABETES EYE EXAM FOR RESULT ENTRY ONLY Routine 04/30/2024 11:45 AM EST COMPREHENSIVE METABOLIC PANEL Routine 10/01/2023 9:07 AM EDT Type 2 diabetes mellitus without complication, without long-term current use of insulin ENDOSCOPY, COLON 12/07/2021 10:3 7 AM EDT HEPATITIS C ANTIBODY, QUALITATIVE Routine 09/20/2020 9:26 AM EDT Encounter for hepatitis C screening test for low risk patient from Last 3 Months or Most Recently Relevant to Health Maintenance Results * (ABNORMAL) Hemoglobin A1c (10/27/2024 10:46 AM EDT) HEMOGLOBIN A1C 7.4(H) 4.3 - 5.8 % [facility] Blood 10/27/2024 10:4 6 AM EDT 10/27/2024 10:48 AM EDT Sofía George MD LAB BLOOD ORDERABLES Final Res ult [facility] [address] [place] [address] * DIABETES EYE EXAM FOR RESULT ENTRY ONLY (04/30/2024 11:45 AM EST) Historical Provider HEALTH MAINTENANCE Edited Result - Final * (ABNORMAL) Comprehensive metabolic panel (10/01/2023 9:07 AM EDT) SODIUM 141 133 - 146 mmol/L [facility] POTASSIUM 4.3 3.3 - 5.1 mmol/L [facility] CHLORIDE 105 96 - 108 mmol/L [facility] CO2 25 21 - 35 mmol/L [facility] BUN 17 6 - 19 mg/dL [facility] CREATININE 1.00 0.5 - 1.5 mg/dL [facility] GLUCOSE 140(H) 70 - 99 mg/dL [facility] ALBUMIN 4.4 3.9 - 4.8 g/dL [facility] TOTAL PROTEIN 6.9 6.5 - 8.0 g/dL [facility] CALCIUM 9.6 8.4 - 10.3 mg/dL [facility] ALKALINE PHOSPHATASE 71 39 - 117 U/L [facility] TOTAL BILIRUBIN 0.6 0.0 - 1.2 mg/dL [facility] AST 21 0 - 37 U/L [facility] ALT 26 0 - 40 U/L [facility] GLOBULIN 2.5 1 - 4.8 g/dL [facility] EGFR 83 >59 mL/min/1.7 3m2 [facility] Comment:Estimated glomerular filtration rate calculated using the CKD-EPI refit equation. ANION GAP 15 10 - 20 mmol/L [facility] Blood 10/01/2023 9:07 AM EDT 10/01/2023 9:11 AM EDT us Sofía George MD LAB BLOOD ORDERABLES Final Res ult [facility] [address] [place], [place] [id number] * ENDOSCOPY, COLON (12/07/2021 10:37 AM EDT) Narrative Transcriptions Sailaja Stearns MD - 12/07/2021 10:37 AM EDT Patient Name: Arsh Stokes Attending MD:: SAILAJA STEARNS MD Procedure Date: 12/07/2021 10:37AM Date of : 1955 Age: 66 Admit Type: Outpatient Gender: Male Room: [place] [address] Referring MD: SOFÍA GEORGE MD Exam Type: Colonoscopy Indications: Screening for colorectal malignant neoplasm, Thisis the patient's first colonoscopy Medications: Propofol per Anesthesia Procedure: Informed consent was obtained from the patientafter discussion of the indications, limitations, alternatives, benefits, and risks of the procedure. Risks specifically discussed include but are not limited to medication reactions, missed lesions, bleeding, perforation, or the need for emergent surgery. Throughout the procedure, the patient's blood pressure, pulse, end-tidal CO2, and oxygensaturations were monitored continuously. The Olympus pediatric variable [id number] #5 was introduced through the anus and advanced tothe cecum, identified by the appendiceal orifice, ileocecal valve and palpation. The colonoscopy was performed without difficulty. The patient tolerated the procedure fairly well. The quality of the bowel preparation was adequate. The ileocecal valve, appendiceal orifice, and rectum werephotographed. Complications: No immediate complications. Estimated blood loss: Minimal. Findings: The perianal and digital rectal examinations were normal. Pertinent negatives include normalsphincter tone. A 7 mm polyp was found in the hepatic flexure. The polyp was sessile. The polyp was removed with acold snare. Resection and retrieval were complete. Estimated blood loss was minimal. A 5 mm polyp was found at 20 cm proximal to theanus. The polyp was flat. The polyp was removed with acold snare. Resection and retrieval were complete. Estimated blood loss was minimal. Retroflexion in the right colon was performed. The exam was otherwise without abnormality ondirect and retroflexion views. Impression: - One 7 mm polyp at the hepatic flexure, removedwith a cold snare. Resected and retrieved. - One 5 mm polyp at 20 cm proximal to the anus, removed with a cold snare. Resected andretrieved. - The examination was otherwise normal on directand retroflexion views. Recommendation: - I will send results of your biopsy to you andyour referring physician or provider. If you do notreceive notification within 3 weeks, please call ouroffice. - Repeat colonoscopy in 5 years for surveillancebased on pathology results. - Patient has a contact number available for emergencies. The signs and symptoms of potential delayed complications were discussed with thepatient. Return to normal activities tomorrow. Written discharge instructions were provided to thepatient. SAILAJA STEARNS MD 12/07/2021 10:57:24 AM This report has been signed electronically. Number of Addenda: 0 Note Initiated On: 12/07/2021 10:37 AM Procedure Code(s): --- Professional --- 73847, Colonoscopy, flexible; with removal of tumor(s), polyp(s), or other lesion(s) by snare technique --- Technical --- 00626, Colonoscopy, flexible; with removal of tumor(s), polyp(s), or other lesion(s) by snare technique Diagnosis Code(s): --- Professional --- Z12.11, Encounter for screening for malignantneoplasm of colon K63.5, Polyp of colon --- Technical --- Z12.11, Encounter for screening for malignantneoplasm of colon K63.5, Polyp of colon CPT copyright 2020 [employer]. All rights reserved. The codes documented in this report are preliminary and upon bulbs farmworker reviewmay be revised to meet current compliance requirements. Procedure Date: 12/07/2021 10:37:[address] [place] [id number] Sofía George MD GI PROCEDURE ORDERABLES Final Result * Hepatitis C antibody, qualitative (09/20/2020 9:26 AM EDT) HCV NON-REACTIV E NON-REACTI VE [facility] Blood 09/20/2020 9:26 AM EDT 09/20/2020 9:28 AM EDT Sofía George MD LAB BLOOD ORDERABLES Final Res ult [facility] [address] [place] [address] from Last 3 Months or Most Recently Relevant to Health Maintenance Insurance MEDICARE PART A & B [employer] MEDICARE SUPPLEMENT MEDICARE PART A & B [employer] MEDICARE SUPPLEMENT MEDICARE PART A & B [employer] MEDICARE SUPPLEMENT MEDICARE PART A & B [facility] MEDICARE SUPPLEMENT MEDICARE PART A & B Member Subscriber Plan / Payer (Ef fective 2024-) Name:Arsh Stokes Member ID:[id number] Relation to Subscriber:Self Name:Arsh Stokes Subscriber ID:[id number] Payer ID:[id number] Group ID:Not on file Type:Medicare Address: [employer] [address] [place] [phone] [facility] MEDICARE SUPPLEMENT MEDICARE PART A & B Member Subscriber Plan / Payer ( fective 2024-) Name:Arsh Stokes Member ID:[id number] Relation to Subscriber:Self Name:KikeArsh Subscriber ID:[id number] Payer ID:[id number] Group ID:Not on file Type:Medicare Address: [employer] [address] [place] [phone] [facility] MEDICARE SUPPLEMENT Advance Directives For more information, please contact: [phone] (9AM - 5PM Maya/[facility], Tuesday-Tuesday) * Full Code (Presumed) (Latest Code Status on File) Date Activated Date Inactivated Comments 01/22/2018 4:28 AM 01/23/2018 3:15 PM Care Teams Eyelet Punch Operator Relationship Specialty Start Date End Date Sofía George MD [address] [place] [address], [address] [place] [address] PCP - General 03/03/17 Additional Source Comments The information contained in this document represents components of the legal health record. It is not the complete legal health record.[facility]
--- OUTSIDE RECORDS SUMMARY | 2024-11-27 13:26 | XMS_ITS | Encounter Summary ---
Author Organization [facility] Address [address] [facility] [facility] [address] [place] [address] Phone Care Team Providers Care Community Resource Officer Name Role Phone Casimiro Vega MD Primary Care Provider Encounter Details Date Type Department Care Team (Late Contact Info) Description 02/15/2018 Ancillary Orders Virtual Department [address] [place] [address] Ozzie Juarez MD [address] [place] [address], [address] [place] [address] [email or web address] Calculus of kidney Social History Tobacco Use Types Packs/Day Years Used Date Smoking Tobacco: Former Cigarettes 0.3 1 0 04/25/1973 - 04/25/1974 Smokeless Tobacco: Never Alcohol Use Standard Drinks/Week Comments No 0 (1 standard drink = 0.6 oz pur e alcohol) rare Sex and Gender Information Value Date Recorded Sex Assigned at Not on file Legal Sex Male 9:53 PM EDT Gender Identity Male 05/14/2021 2:23 PM EDT Sexual Orientation Not on file documented as of this encounter Plan of Treatment Upcoming Encounters Date Type Department Care Team (Late Contact Info) Description 06/06/2025 11:00 AM EDT Office Visit [facility] Medicine [address] [place] [address] [place] [address] Casimiro Vega MD [address] [facility], [address] [place] [address] (work) [email or web address] documented as of this encounter Results * US Kidneys and Bladder (04/03/2018 10:06 AM EST) Anatomical Region Laterality Modality Abdomen, Kidney Ultrasound 04/03/2018 12:3 9 PM EST Impressions 04/03/2018 12:43 PM EST No current nephrolithiasis or hydronephrosis is seen. 3.9% postvoid residual in the urinary bladder. S/S: Follow-up renal calculi POS - [id number] Narrative 04/03/2018 12:43 PM EST COMPARISON: CT abdomen pelvis 01/22/2018 FINDINGS: The right kidney measures 11.1 x 5.8 cm on the left kidney measures 12.2 x 5.5 cm. No hydronephrosis or nephrolithiasis is seen. No dilated ureter is noted. There is bilateral diffuse renal parenchymal thinning evident. The urinary bladder has an initial volume of 391 mL with a 15 mL postvoid residual. This corresponds to 3.9% postvoid residual. Only the left ureteral jet is visualized. Procedure Note Marcus Augustin MD - 04/03/2018 COMPARISON: CT abdomen pelvis 01/22/2018 FINDINGS: The right kidney measures 11.1 x 5.8 cm on the left kidney measures 12.2 x5.5 cm. No hydronephrosis or nephrolithiasis is seen. No dilated ureter isnoted. There is bilateral diffuse renal parenchymal thinning evident. The urinary bladder has an initial volume of 391 mL with a 15 mL postvoidresidual. This corresponds to 3.9% postvoid residual. Only the leftureteral jet is visualized. IMPRESSION: No current nephrolithiasis or hydronephrosis is seen. 3.9% postvoid residual in the urinary bladder. S/S: Follow-up renal calculi POS - [id number] Ozzie Juarez MD [facility] RENAL Final Result documented in this encounter Visit Diagnoses Diagnosis Calculus of kidney Calculus of kidney documented in this encounter Additional Health Concerns Infection Onset Date Last Indicated Resolved Time COVID-19 04/09/2024 04/09/2024 04/30/2024 1:21 AM EST Assessment Noted Time PHQ-2 Depression Total Score: 0 10/18/19 4:15 PM EDT documented as of this encounter Care Teams Community Resource Officer Relationship Specialty Start Date End Date Casimiro Vega MD [address] [place] [address], [address] [place] [address] [email or web address] PCP - General 03/03/17 documented as of this encounter Additional Source Comments The information contained in this document represents components of the legal health record. It is not the complete legal health record.[facility]
--- OUTSIDE RECORDS SUMMARY | 2024-11-27 13:26 | XMS_ITS | Encounter Summary ---
Author Organization [facility] Address [address] [place] [address] [place] [phone] Phone Care Team Providers Care Supervisor [employer] Name Role Phone Casimiro Vega MD Primary Care Provider [phone] Encounter Details Date Type Department Care Team (Late Contact Info) Description 01/22/2018 Procedure Pass OR Admitting Dept - Virtual Department [address] [place] [address] Social History Tobacco Use Types Packs/Day Years [...] 06/06/2025 11:00 AM EDT Office Visit [facility] [place] [facility] [address] [place] [address] [place] [address] Casimiro Vega MD [address] [facility] [place] [address] [email or web address] documented as of this encounter Visit Diagnoses Not on filedocumented in this encounter Additional Health Concerns Infection Onset Date Last Indicated Resolved Time COVID-19 04/09/2024 04/09/2024 04/30/2024 1:21 AM EST Assessment Noted Time PHQ-2 Depression Total Score: 0 10/18/19 4:15 PM EDT documented as of this encounter Care Teams Supervisor [employer] Relationship Specialty Start Date End Date Casimiro Vega MD [address] [place] [address], [address] [place] [address] [email or web address] PCP - General 03/03/17 documented as of this encounter Additional Source Comments The information contained in this document represents components of the legal health record. It is not the complete legal health record.[facility]
== END 2024-11-27 12:51 | disposition home or self-care (01) ==
PROVIDERS: PCP Pediatrics; Visit Provider Internal Medicine
DX: I25.10 Atherosclerotic heart disease of native coronary artery without angina pectoris (principal); I63.9 Cerebral infarction, unspecified; I10 Essential (primary) hypertension; E11.8 Type 2 diabetes mellitus with unspecified complications; E78.5 Hyperlipidemia, unspecified
CPT/HCPCS: 99214; G2211

== ENCOUNTER → 2024-11-27 12:21 | Outpatient (BNVA) | payer MEDICARE, OTHER, SELFPAY | PROVIDERS: PCP Pediatrics; Visit Provider Internal Medicine | DX: I25.10 Atherosclerotic heart disease of native coronary artery without angina pectoris (principal); I63.9 Cerebral infarction, unspecified; I10 Essential (primary) hypertension; E11.8 Type 2 diabetes mellitus with unspecified complications; E78.5 Hyperlipidemia, unspecified | CPT/HCPCS: 99212 ==